=== PATIENT | male | born 1965 | race Caucasian/White ===

== ENCOUNTER 2019-09-03 22:54 | Emergency (ER) | payer MEDICARE, MEDICAID ==
[2019-09-03] MEDS ORDERED: NS 1,000 ML IV SCH (23:02)
[2019-09-03] MEDS ORDERED: HumuLIN R (REGULAR) INSULIN (NovoLIN R) **100U/ML** PER UNIT IV ONE (23:15)
[2019-09-03 23:27] LABS: BASO # 0.1 10^3/uL (0.0-0.2); BASO % 0.7 % (0.0-1.0); EOS # 0.1 10^3/uL (0.0-0.5); HEMATOCRIT 44.9 % (42.0-52.0); HEMOGLOBIN 14.4 g/dl (13.5-17.5); LYMPH # 2.2 10^3/uL (1.5-5.0); LYMPH % 30.7 % (24.0-44.0); MEAN CORPUSCULAR HEMOGLOBIN 28.3 pg (27.0-33.0); MEAN CORPUSCULAR HGB CONC 32.1 g/dl (32.0-36.5); MEAN CORPUSCULAR VOLUME 88.2 fl (80.0-96.0); MONO # 0.5 10^3/uL (0.0-0.8); MONO % 7.2 % (0.0-5.0); NEUTROPHILS # 4.3 10^3/uL (1.5-8.5); NEUTROPHILS % 60.1 % (36.0-66.0); PLATELET COUNT, AUTOMATED 203 10^3/uL (150-450); RED BLOOD COUNT 5.09 10^6/uL (4.30-6.10); VENOUS BASE EXCESS -0.3 (-2.0-2.0); VENOUS HCO3 26.5 MEQ/L (23.0-27.0); VENOUS PARTIAL PRESSURE CO2 51.8 mmHg (38.0-50.0); VENOUS PH 7.327 UNITS (7.330-7.430); VENOUS STANDARD HCO3 23.7 MEQ/L; VENOUS TOTAL CO2 28.1 MEQ/L (24.0-28.0); WHITE BLOOD COUNT 7.1 10^3/uL (4.0-10.0)
[2019-09-03 23:48] LABS: HEMOGLOBIN A1c 13.1 %
[2019-09-03 23:55] LABS: BLOOD UREA NITROGEN 12 MG/DL (7-18); CALCIUM LEVEL 8.8 MG/DL (8.5-10.1); CARBON DIOXIDE LEVEL 30 MEQ/L (21-32); CHLORIDE LEVEL 99 MEQ/L (98-107); CK-MB VALUE MASS 2.2 NG/ML (<3.6); CPK CREATINE PHOSPHOKINASE 73 U/L (39-308); CREATININE FOR GFR 1.18 MG/DL (0.70-1.30); ETHYL ALCOHOL (ETHANOL) 0.008 % (0.000-0.010); GLOMERULAR FILTRATION RATE > 60.0 (>56); GLUCOSE, FASTING 427 MG/DL (70-100); MB/CK RELATIVE INDEX 3.01 (< OR =4); NT-PRO BNP 28 PG/ML (<125); SODIUM LEVEL 138 MEQ/L (136-145); TROPONIN I < 0.02 NG/ML (< 0.10)
[2019-09-04] MEDS ORDERED: HUMA100I5 SC (00:01)
[2019-09-04] MEDS ORDERED: PAXI20TA29 PO (00:01)
[2019-09-04] MEDS ORDERED: VITA50005 PO (00:01)
[2019-09-04] MEDS ORDERED: METF-877 PO (00:01)
[2019-09-04] MEDS ORDERED: ELIQ5TAB PO (00:01)
[2019-09-04 00:37] LABS: INR 0.92; PROTHROMBIN TIME 12.1 SECONDS (11.8-14.0)
[2019-09-04 01:26] VITALS: BP 105/67
--- NOTE | 2019-09-04 06:56 | ECGEPIP ---
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
--- NOTE | 2019-09-04 08:00 | REP ---
Clinical: Acute chest pain . Comparison: None . Findings: The mediastinum and cardiac silhouette are stable and within normal limits for portable technique. The lung jacobsen are clear without acute consolidation, effusion, or pneumothorax. Skeletal structures are intact. Impression: No acute cardiopulmonary process appreciated. Electronically Signed by Hamilton Webster MD 09/04/2019 07:51 A
== END 2019-09-04 01:30 | disposition home or self-care (01) ==
LOC: M ED 22:54
DX: E11.65 Type 2 diabetes mellitus with hyperglycemia (principal); I10 Essential (primary) hypertension; Z79.899 Other long term (current) drug therapy; Z79.4 Long term (current) use of insulin; Z79.01 Long term (current) use of anticoagulants; F17.210 Nicotine dependence, cigarettes, uncomplicated
CPT/HCPCS: 36415; 71045; 80047; 80048; 82550; 82553; 82803; 83036; 83880; 84484; 85025; 85610; 93005; 93041; 96361; 96374; 99285; G0480

== ENCOUNTER 2023-11-01 23:12 | Emergency (ER) | payer OTHER, MEDICAID ==
[~2023-11-01] VITALS: Ht 190.5 cm; Wt 81.6 kg
[~2023-11-01 23:12] MED LIST: ELIQ5TAB PO; ERGO500029 PO; HUMA100I5 SC; METF-877 PO; PAXI20TA30 PO
[2023-11-02 04:27] VITALS: BP 159/73; TEMP 98.7; O2SAT 98
== END 2023-11-02 04:35 | disposition home or self-care (01) ==
LOC: EDBD 23:12 → M ED 23:12
DX: R22.41 Localized swelling, mass and lump, right lower limb (principal); E11.9 Type 2 diabetes mellitus without complications; G62.9 Polyneuropathy, unspecified; Z87.820 Personal history of traumatic brain injury; Z79.01 Long term (current) use of anticoagulants; Z79.4 Long term (current) use of insulin; Z79.899 Other long term (current) drug therapy

== ENCOUNTER 2024-01-26 13:29 | Observation (INO) | payer OTHER, MEDICAID ==
[~2024-01-26] VITALS: Ht 190.5 cm; Wt 82.8 kg
[2024-01-26 14:11] LABS: VENOUS BASE EXCESS -0.2 (-2.0-2.0); VENOUS HCO3 27.7 MMOL/L (23.0-27.0); VENOUS O2 SATURATION 72.6 % (60.0-80.0); VENOUS PARTIAL PRESSURE CO2 60.5 mmHg (38.0-50.0); VENOUS PARTIAL PRESSURE O2 40.4 mmHg (30.0-50.0); VENOUS PH 7.279 UNITS (7.330-7.430); VENOUS STANDARD HCO3 23.8 MMOL/L; VENOUS TOTAL CO2 29.6 MMOL/L (24.0-28.0)
[2024-01-26 14:18] LABS: BASO # 0.1 10^3/uL (0.0-0.2); BASO % 0.8 % (0.0-1.0); EOS # 0.1 10^3/uL (0.0-0.5); EOS % 2.2 % (0.0-3.0); HEMATOCRIT 36.7 % (42.0-52.0); LYMPH # 1.8 10^3/uL (1.5-5.0); LYMPH % 29.8 % (24.0-44.0); MEAN CORPUSCULAR HEMOGLOBIN 29.7 pg (27.0-33.0); MEAN CORPUSCULAR HGB CONC 32.7 g/dl (32.0-36.5); MEAN CORPUSCULAR VOLUME 90.8 fl (80.0-96.0); MONO # 0.5 10^3/uL (0.0-0.8); MONO % 8.9 % (2.0-8.0); NEUTROPHILS # 3.5 10^3/uL (1.5-8.5); PLATELET COUNT, AUTOMATED 187 10^3/uL (150-450); RED BLOOD COUNT 4.04 10^6/uL (4.30-6.10)
[2024-01-26 14:38] LABS: ETHYL ALCOHOL (ETHANOL) < 0.003 % (0.000-0.010)
[2024-01-26 14:40] LABS: CPK CREATINE PHOSPHOKINASE 74 U/L (46-171); SALICYLATE LEVEL < 3.0 MG/DL (<30)
[2024-01-26 14:51] LABS: OSMOLALITY SERUM 301 MOSM/KG (275-295)
[2024-01-26 14:57] LABS: ALBUMIN 2.9 G/DL (3.2-5.2); ALKALINE PHOSPHATASE 73 U/L (40-129); ALT/SGPT 32 U/L (7.0-40); AST/SGOT 23 U/L (<34); BILIRUBIN,DIRECT 0.2 MG/DL (<0.4); BILIRUBIN,TOTAL 0.5 MG/DL (0.3-1.2); BLOOD UREA NITROGEN 14 MG/DL (9-23); CALCIUM LEVEL 8.8 MG/DL (8.5-10.1); CARBON DIOXIDE LEVEL 31 MMOL/L (20-31); CHLORIDE LEVEL 102 MMOL/L (98-107); CK-MB VALUE MASS 1.2 NG/ML (<3.6); CREATININE FOR GFR 0.99 MG/DL (0.70-1.30); GLOMERULAR FILTRATION RATE > 60.0 (>56); GLUCOSE, FASTING 424 MG/DL (60-100); MB/CK RELATIVE INDEX 1.62 (< OR =4); POTASSIUM SERUM 4.2 MMOL/L (3.5-5.1); SODIUM LEVEL 135 MMOL/L (136-145); THYROID STIMULATING HORMONE 1.014 uIU/ML (0.55-4.78); TOTAL PROTEIN 5.8 G/DL (5.7-8.2)
[2024-01-26] MEDS: NS 1,000 ML IV ONE (15:16)
[2024-01-26 15:27] LABS: CK-MB VALUE MASS 1.2 NG/ML (<3.6)
[2024-01-26] MEDS ORDERED: ISOVUE-370 76% 100ML VIAL As Ordered ONE (15:27)
[2024-01-26 15:29] LABS: CPK CREATINE PHOSPHOKINASE 81 U/L (46-171); MB/CK RELATIVE INDEX 1.48 (< OR =4)
[2024-01-26 16:40] LABS: AMPHETAMINES LEVEL URINE NEGATIVE (NEGATIVE); BARBITURATES URINE NEGATIVE (NEGATIVE); BENZODIAZEPINES URINE NEGATIVE (NEGATIVE); CANNABINOIDS URINE NEGATIVE (NEGATIVE); COCAINE METABOLITE URINE NEGATIVE (NEGATIVE); METHADONE URINE NEGATIVE (NEGATIVE); OPIATES URINE NEGATIVE (NEGATIVE); PHENCYCLIDINE URINE NEGATIVE (NEGATIVE)
[2024-01-26] MEDS ORDERED: MIDO10TA3 PO (17:04)
[2024-01-26] MEDS ORDERED: B-CO1TAB14 PO (17:04)
[2024-01-26] MEDS ORDERED: FERR325T19 PO (17:04)
[2024-01-26] MEDS ORDERED: PIOG1TAB36 PO (17:04)
[2024-01-26] MEDS ORDERED: HYDR-3363 PO (17:04)
[2024-01-26] MEDS ORDERED: TOPI-21 PO (17:04)
[2024-01-26] MEDS ORDERED: LEVE500T5 PO (17:04)
[2024-01-26] MEDS ORDERED: ATOM10CA6 PO (17:04)
[2024-01-26] MEDS ORDERED: MELA3TAB29 PO (17:04)
[2024-01-26] MEDS ORDERED: ZOLO100T PO (17:04)
[2024-01-26] MEDS ORDERED: ASPI81TA26 PO (17:04)
[2024-01-26] MEDS ORDERED: GABA-1490 PO (17:04)
[2024-01-26] MEDS ORDERED: MECL-86 PO (17:04)
[2024-01-26] MEDS ORDERED: FLUD0.1T PO (17:04)
[2024-01-26] MEDS ORDERED: JANU100T PO (17:04)
[2024-01-26] MEDS ORDERED: ATOR40TA75 PO (17:05)
[2024-01-26] MEDS ORDERED: LANTINJ4 SC (17:06)
[2024-01-26] MEDS ORDERED: HOME MED LIST COMPLETE! XX SCH (17:10)
[2024-01-26] MEDS ORDERED: GLUCOSE 4 GM CHEW PO PRN (19:35)
[2024-01-26] MEDS ORDERED: GLUCAGON INJ 1MG VIAL SC PRN (19:35)
[2024-01-26] MEDS ORDERED: MIDODRINE 5 MG TAB PO PRN (19:35)
[2024-01-26] MEDS ORDERED: DEXTROSE 50% 50ML SYRINGE IV PRN (19:35)
[2024-01-26 20:27] LABS: HEMATOCRIT 39.5 % (42.0-52.0); MEAN CORPUSCULAR HEMOGLOBIN 29.5 pg (27.0-33.0); MEAN CORPUSCULAR HGB CONC 32.9 g/dl (32.0-36.5); MEAN CORPUSCULAR VOLUME 89.8 fl (80.0-96.0); PLATELET COUNT, AUTOMATED 193 10^3/uL (150-450); WHITE BLOOD COUNT 5.5 10^3/uL (4.0-10.0)
[2024-01-26 20:50] LABS: BLOOD UREA NITROGEN 11 MG/DL (9-23); CALCIUM LEVEL 8.9 MG/DL (8.5-10.1); CARBON DIOXIDE LEVEL 32 MMOL/L (20-31); CHLORIDE LEVEL 104 MMOL/L (98-107); CREATININE FOR GFR 0.84 MG/DL (0.70-1.30); GLOMERULAR FILTRATION RATE > 60.0 (>56); GLUCOSE, FASTING 268 MG/DL (60-100); POTASSIUM SERUM 4.2 MMOL/L (3.5-5.1); SODIUM LEVEL 141 MMOL/L (136-145)
[2024-01-26] MEDS: ASPIRIN 81MG ENTERIC TABLET PO SCH (21:36)
[2024-01-26] MEDS: INSULIN LISPRO (NovoLOG) PER UNIT SC SCH (21:36)
[2024-01-26] MEDS: TOPIRAMATE (TopAMAX) 25 MG TAB PO SCH (21:37)
[2024-01-26] MEDS: GABAPENTIN 300 MG CAP PO SCH (21:37)
[2024-01-26] MEDS: levETIRAcetam 250MG TABLET (KEPPRA) PO SCH (21:37)
[2024-01-26] MEDS: ATORVASTATIN 20 MG TAB PO SCH (21:37)
[2024-01-26 22:46] VITALS: BP 160/81; TEMP 97.1; O2SAT 96
[2024-01-27] VITALS (9 sets, daily range): BP systolic 100–150; BP diastolic 58–86; PULSE 74; TEMP 97.2–98.8; O2SAT 95–99
[2024-01-27] MEDS: PANTOPRAZOLE 40MG VIAL IV STA (01:51)
[2024-01-27 06:53] LABS: HEMATOCRIT 37.4 % (42.0-52.0); HEMOGLOBIN 12.3 g/dl (13.5-17.5); MEAN CORPUSCULAR HEMOGLOBIN 29.6 pg (27.0-33.0); MEAN CORPUSCULAR HGB CONC 32.9 g/dl (32.0-36.5); MEAN CORPUSCULAR VOLUME 90.1 fl (80.0-96.0); PLATELET COUNT, AUTOMATED 187 10^3/uL (150-450); RED BLOOD COUNT 4.15 10^6/uL (4.30-6.10); WHITE BLOOD COUNT 6.2 10^3/uL (4.0-10.0)
[2024-01-27 07:11] LABS: BLOOD UREA NITROGEN 12 MG/DL (9-23); CALCIUM LEVEL 8.9 MG/DL (8.5-10.1); CARBON DIOXIDE LEVEL 32 MMOL/L (20-31); CHLORIDE LEVEL 106 MMOL/L (98-107); CREATININE FOR GFR 0.95 MG/DL (0.70-1.30); GLOMERULAR FILTRATION RATE > 60.0 (>56); GLUCOSE, FASTING 222 MG/DL (60-100); POTASSIUM SERUM 3.8 MMOL/L (3.5-5.1); SODIUM LEVEL 140 MMOL/L (136-145)
[2024-01-27] MEDS: INSULIN LISPRO (NovoLOG) PER UNIT SC SCH (08:23)
[2024-01-27] MEDS: SERTRALINE 100 MG TAB PO SCH (08:23)
[2024-01-27] MEDS: FLUDROCORTISONE ACETATE 0.1 MG TAB PO SCH (08:23)
[2024-01-27] MEDS ORDERED: ACETAMINOPHEN 325 MG TAB As Ordered ONE (12:47)
[2024-01-27] MEDS: MECLIZINE 25 MG TABLET PO PRN (12:48)
[2024-01-27] MEDS: ACETAMINOPHEN 325 MG TAB PO PRN (12:49)
[2024-01-27] MEDS: SITagliptin 50 MG TAB (JANUVIA) PO SCH (15:31)
[2024-01-27] MEDS ORDERED: LEVEMIR (INSULIN DETEMIR) 1 UNITS/0.01ML SC SCH (21:00)
[2024-01-28 03:27] VITALS: BP 140/85; TEMP 97.8; O2SAT 98
[2024-01-28 05:55] LABS: BASO % 0.7 % (0.0-1.0); EOS # 0.2 10^3/uL (0.0-0.5); EOS % 3.3 % (0.0-3.0); HEMATOCRIT 36.5 % (42.0-52.0); HEMOGLOBIN 11.9 g/dl (13.5-17.5); LYMPH # 2.2 10^3/uL (1.5-5.0); LYMPH % 38.1 % (24.0-44.0); MEAN CORPUSCULAR HEMOGLOBIN 29.8 pg (27.0-33.0); MEAN CORPUSCULAR HGB CONC 32.6 g/dl (32.0-36.5); MEAN CORPUSCULAR VOLUME 91.3 fl (80.0-96.0); MONO # 0.5 10^3/uL (0.0-0.8); MONO % 8.1 % (2.0-8.0); NEUTROPHILS # 2.9 10^3/uL (1.5-8.5); NEUTROPHILS % 49.6 % (36.0-66.0); PLATELET COUNT, AUTOMATED 186 10^3/uL (150-450); WHITE BLOOD COUNT 5.8 10^3/uL (4.0-10.0)
[2024-01-28 06:16] LABS: BLOOD UREA NITROGEN 18 MG/DL (9-23); CALCIUM LEVEL 9.3 MG/DL (8.5-10.1); CARBON DIOXIDE LEVEL 28 MMOL/L (20-31); CHLORIDE LEVEL 108 MMOL/L (98-107); CREATININE FOR GFR 0.93 MG/DL (0.70-1.30); GLOMERULAR FILTRATION RATE > 60.0 (>56); GLUCOSE, FASTING 239 MG/DL (60-100); SODIUM LEVEL 142 MMOL/L (136-145)
[2024-01-28 07:52] VITALS: BP 110/58; TEMP 97.2; O2SAT 97
[2024-01-28] MEDS ORDERED: LEVEMIR (INSULIN DETEMIR) 1 UNITS/0.01ML SC SCH (09:00)
[2024-01-28] MEDS: LEVEMIR (INSULIN DETEMIR) 1 UNITS/0.01ML SC SCH (09:07)
[2024-01-28 11:30] VITALS: BP 121/69; TEMP 98.4; O2SAT 96
[2024-01-28] MEDS ORDERED: ACET32TAB PO (14:21)
[2024-01-28] MEDS ORDERED: JANU100T PO (14:21)
[2024-01-28] MEDS ORDERED: LANTINJ4 SC (14:21)
== END 2024-01-28 17:40 | disposition home health service (06) ==
LOC: EDBD 13:29 → M ED 13:29 → INTOOBSV 19:28 → M ED INP 19:28 → M PCU 22:55
PROVIDERS: ADMIT Student in an Organized Health Care Education/Training Program; ATTEND Student in an Organized Health Care Education/Training Program
DX: R41.82 Altered mental status, unspecified (principal); G40.909 Epilepsy, unspecified, not intractable, without status epilepticus; E11.65 Type 2 diabetes mellitus with hyperglycemia; R94.01 Abnormal electroencephalogram [EEG]; R51.9 Headache, unspecified; M79.89 Other specified soft tissue disorders; J98.11 Atelectasis; R91.1 Solitary pulmonary nodule; I77.810 Thoracic aortic ectasia; Z87.820 Personal history of traumatic brain injury; I95.1 Orthostatic hypotension; E11.42 Type 2 diabetes mellitus with diabetic polyneuropathy; G47.30 Sleep apnea, unspecified; R26.81 Unsteadiness on feet; R29.6 Repeated falls; J96.11 Chronic respiratory failure with hypoxia; J96.12 Chronic respiratory failure with hypercapnia; G93.89 Other specified disorders of brain; H93.11 Tinnitus, right ear; R42 Dizziness and giddiness; F90.9 Attention-deficit hyperactivity disorder, unspecified type; F41.9 Anxiety disorder, unspecified; E78.5 Hyperlipidemia, unspecified; D50.9 Iron deficiency anemia, unspecified; E53.8 Deficiency of other specified B group vitamins; Z98.84 Bariatric surgery status; Z79.899 Other long term (current) drug therapy; Z79.82 Long term (current) use of aspirin; Z79.4 Long term (current) use of insulin
CPT/HCPCS: 36415; 70450; 71045; 71275; 72125; 80047; 80048; 80076; 80143; 80177; 80307; 82077; 82140; 82550; 82553; 82803; 83605; 83930; 84146; 84443; 84484; 85025; 85027; 87040; 87077; 87154; 87186; 93005; 93041; 93306; 94760; 95819; 96374; 97116; 97161; 97530; 99285; G0378; J1815; J2470; Q9967

== ENCOUNTER 2024-02-12 14:12 | Inpatient (IN) | payer OTHER, MEDICAID ==
[~2024-02-12] VITALS: Ht 190.5 cm; Wt 89.5 kg
[~2024-02-12 14:12] MED LIST changes: +ACET32TAB PO; +ASPI81TA26 PO; +ATOM10CA6 PO; +ATOR40TA75 PO; +B-CO1TAB14 PO; +FERR325T19 PO; +FLUD0.1T PO; +GABA-1490 PO; +HYDR-3363 PO; +JANU100T PO; +LANTINJ4 SC; +LEVE500T5 PO; +MECL-86 PO; +MELA3TAB29 PO; +MIDO10TA3 PO; +PIOG1TAB36 PO; +TOPI-21 PO; +ZOLO100T PO
[2024-02-12 15:04] LABS: BASO # 0.1 10^3/uL (0.0-0.2); EOS # 0.2 10^3/uL (0.0-0.5); EOS % 2.4 % (0.0-3.0); HEMATOCRIT 39.6 % (42.0-52.0); HEMOGLOBIN 12.7 g/dl (13.5-17.5); LYMPH # 1.6 10^3/uL (1.5-5.0); LYMPH % 26.7 % (24.0-44.0); MEAN CORPUSCULAR HEMOGLOBIN 29.3 pg (27.0-33.0); MEAN CORPUSCULAR HGB CONC 32.1 g/dl (32.0-36.5); MEAN CORPUSCULAR VOLUME 91.5 fl (80.0-96.0); MONO # 0.5 10^3/uL (0.0-0.8); NEUTROPHILS # 3.8 10^3/uL (1.5-8.5); NEUTROPHILS % 61.7 % (36.0-66.0); PLATELET COUNT, AUTOMATED 261 10^3/uL (150-450); RED BLOOD COUNT 4.33 10^6/uL (4.30-6.10); WHITE BLOOD COUNT 6.1 10^3/uL (4.0-10.0)
[2024-02-12 15:33] LABS: ETHYL ALCOHOL (ETHANOL) 0.005 % (0.000-0.010)
[2024-02-12 15:40] LABS: BLOOD UREA NITROGEN 16 MG/DL (9-23); CALCIUM LEVEL 9.1 MG/DL (8.5-10.1); CARBON DIOXIDE LEVEL 31 MMOL/L (20-31); CHLORIDE LEVEL 100 MMOL/L (98-107); CREATININE FOR GFR 0.91 MG/DL (0.70-1.30); FREE T4 0.94 NG/DL (0.89-1.76); GLOMERULAR FILTRATION RATE > 60.0 (>56); GLUCOSE, FASTING 501 MG/DL (60-100); MAGNESIUM LEVEL 1.6 MG/DL (1.8-2.4); POTASSIUM SERUM 4.6 MMOL/L (3.5-5.1); SODIUM LEVEL 136 MMOL/L (136-145); THYROID STIMULATING HORMONE 1.788 uIU/ML (0.55-4.78)
[2024-02-12 15:56] LABS: AMPHETAMINES LEVEL URINE NEGATIVE (NEGATIVE); BARBITURATES URINE NEGATIVE (NEGATIVE); BENZODIAZEPINES URINE NEGATIVE (NEGATIVE); CANNABINOIDS URINE NEGATIVE (NEGATIVE); COCAINE METABOLITE URINE NEGATIVE (NEGATIVE); METHADONE URINE NEGATIVE (NEGATIVE); OPIATES URINE NEGATIVE (NEGATIVE); PHENCYCLIDINE URINE NEGATIVE (NEGATIVE)
[2024-02-12] MEDS: HumuLIN R (REGULAR) INSULIN (NovoLIN R) **100U/ML** PER UNIT IV ONE (17:05)
[2024-02-12] MEDS: MORPHINE 2 MG/ML 1ML VIAL IV ONE (17:05)
[2024-02-12] MEDS ORDERED: LANTINJ4 SC (18:32)
[2024-02-12] MEDS ORDERED: HOME MED LIST COMPLETE! XX SCH (18:35)
[2024-02-12] MEDS ORDERED: GLUCAGON INJ 1MG VIAL SC PRN (18:35)
[2024-02-12] MEDS: NS 1,000 ML IV SCH (18:35)
[2024-02-12] MEDS ORDERED: DEXTROSE 50% 50ML SYRINGE IV PRN (18:35)
[2024-02-12] MEDS ORDERED: GLUCOSE 4 GM CHEW PO PRN (18:35)
[2024-02-12 19:06] LABS: ACETONE/KETONE 0.13 MMOL/L (0.02-0.27)
[2024-02-12 19:09] LABS: FOLATE 19.3 NG/ML (>5.4); VITAMIN B12 LEVEL 1468 PG/ML (211-911)
[2024-02-12] MEDS ORDERED: MIDODRINE 5 MG TAB PO PRN (19:25)
[2024-02-12] MEDS ORDERED: MECLIZINE 25 MG TABLET PO PRN (19:25)
[2024-02-12 20:29] VITALS: BP 92/65; TEMP 97.8; O2SAT 97
[2024-02-12] MEDS: MAG SULF 1GM/100ML (MAG RUN) 1 GM in IV 1 EA IV SCH (20:59)
[2024-02-12] MEDS: GABAPENTIN 300 MG CAP PO SCH (21:00)
[2024-02-12] MEDS: NS 1,000 ML IV ONE (21:00)
[2024-02-12] MEDS: ATORVASTATIN 20 MG TAB PO SCH (21:00)
[2024-02-12] MEDS: RAMELTEON 8 MG TAB (ROZEREM) PO SCH (21:00)
[2024-02-12] MEDS: levETIRAcetam 250MG TABLET (KEPPRA) PO SCH (21:00)
[2024-02-12 23:27] VITALS: BP 162/83; TEMP 96.9; O2SAT 95
[2024-02-12] MEDS: INSULIN LISPRO (NovoLOG) PER UNIT SC SCH (23:43)
[2024-02-12] MEDS: TOPIRAMATE (TopAMAX) 25 MG TAB PO SCH (23:43)
[2024-02-13] VITALS (7 sets, daily range): BP systolic 102–135; BP diastolic 54–74; TEMP 97.2–98.5; O2SAT 93–99
[2024-02-13] MEDS: MORPHINE 2 MG/ML 1ML VIAL IV PRN (02:08)
[2024-02-13] MEDS ORDERED: NALOXONE INJ 0.4MG/1ML VIAL As Ordered ONE (03:59)
[2024-02-13 04:16] LABS: ABG BASE EXCESS -0.1 (-2.0-2.0); ABG O2 SATURATION 98.7 % (95.0-99.0); ABG PARTIAL PRESSURE CO2 48.4 mmHg (35.0-45.0); ABG STANDARD HCO3 24.4 MMOL/L. (22.0-26.0); ABG TOTAL CO2 27.5 MMOL/L (22.0-29.0); ABG pH (ARTERIAL) 7.348 UNITS (7.350-7.450)
[2024-02-13 04:50] LABS: BASO # 0.1 10^3/uL (0.0-0.2); BASO % 0.7 % (0.0-1.0); EOS # 0.2 10^3/uL (0.0-0.5); EOS % 2.3 % (0.0-3.0); HEMATOCRIT 35.3 % (42.0-52.0); HEMOGLOBIN 11.5 g/dl (13.5-17.5); LYMPH # 2.2 10^3/uL (1.5-5.0); LYMPH % 23.9 % (24.0-44.0); MEAN CORPUSCULAR HEMOGLOBIN 29.6 pg (27.0-33.0); MEAN CORPUSCULAR HGB CONC 32.6 g/dl (32.0-36.5); MEAN CORPUSCULAR VOLUME 90.7 fl (80.0-96.0); MONO # 0.6 10^3/uL (0.0-0.8); MONO % 6.1 % (2.0-8.0); NEUTROPHILS # 6.3 10^3/uL (1.5-8.5); NEUTROPHILS % 66.6 % (36.0-66.0); PLATELET COUNT, AUTOMATED 238 10^3/uL (150-450); RED BLOOD COUNT 3.89 10^6/uL (4.30-6.10); WHITE BLOOD COUNT 9.4 10^3/uL (4.0-10.0)
[2024-02-13] MEDS: NALOXONE INJ 0.4MG/1ML VIAL IV STA ×2 (04:51→04:52)
[2024-02-13 05:11] LABS: ALBUMIN 2.8 G/DL (3.2-5.2); ALKALINE PHOSPHATASE 64 U/L (40-129); ALT/SGPT 32 U/L (7.0-40); AST/SGOT 27 U/L (<34); BILIRUBIN,TOTAL 0.5 MG/DL (0.3-1.2); BLOOD UREA NITROGEN 17 MG/DL (9-23); CALCIUM LEVEL 9.2 MG/DL (8.5-10.1); CARBON DIOXIDE LEVEL 29 MMOL/L (20-31); CHLORIDE LEVEL 107 MMOL/L (98-107); CREATININE FOR GFR 0.93 MG/DL (0.70-1.30); GLOMERULAR FILTRATION RATE > 60.0 (>56); GLUCOSE, FASTING 170 MG/DL (60-100); POTASSIUM SERUM 3.7 MMOL/L (3.5-5.1); SODIUM LEVEL 142 MMOL/L (136-145); TOTAL PROTEIN 5.7 G/DL (5.7-8.2)
[2024-02-13 05:12] LABS: ACETONE/KETONE 0.33 MMOL/L (0.02-0.27)
[2024-02-13 05:15] LABS: ALBUMIN 2.9 G/DL (3.2-5.2); ALKALINE PHOSPHATASE 64 U/L (40-129); ALT/SGPT 33 U/L (7.0-40); AST/SGOT 27 U/L (<34); BILIRUBIN,TOTAL 0.5 MG/DL (0.3-1.2); BLOOD UREA NITROGEN 16 MG/DL (9-23); CALCIUM LEVEL 9.3 MG/DL (8.5-10.1); CARBON DIOXIDE LEVEL 28 MMOL/L (20-31); CHLORIDE LEVEL 106 MMOL/L (98-107); CREATININE FOR GFR 0.94 MG/DL (0.70-1.30); GLOMERULAR FILTRATION RATE > 60.0 (>56); GLUCOSE, FASTING 169 MG/DL (60-100); MAGNESIUM LEVEL 1.9 MG/DL (1.8-2.4); POTASSIUM SERUM 3.6 MMOL/L (3.5-5.1); SODIUM LEVEL 141 MMOL/L (136-145); TOTAL PROTEIN 5.8 G/DL (5.7-8.2)
[2024-02-13] MEDS ORDERED: ATOMOXETINE HCL 40 MG CAP (STRATTERA) PO SCH (09:00)
[2024-02-13 09:18] LABS: BLOOD UREA NITROGEN 17 MG/DL (9-23); CALCIUM LEVEL 9.2 MG/DL (8.5-10.1); CARBON DIOXIDE LEVEL 29 MMOL/L (20-31); CHLORIDE LEVEL 106 MMOL/L (98-107); CREATININE FOR GFR 0.88 MG/DL (0.70-1.30); GLOMERULAR FILTRATION RATE > 60.0 (>56); GLUCOSE, FASTING 217 MG/DL (60-100); POTASSIUM SERUM 4.2 MMOL/L (3.5-5.1); SODIUM LEVEL 141 MMOL/L (136-145)
[2024-02-13] MEDS: SERTRALINE 100 MG TAB PO SCH (10:39)
[2024-02-13] MEDS: ENOXAPARIN 40MG/0.4ML SYRINGE (J1650 PER 10MG) SC SCH (10:39)
[2024-02-13] MEDS: VITAMIN B COMPLEX/VIT C CAP PO SCH (10:39)
[2024-02-13] MEDS: FLUDROCORTISONE ACETATE 0.1 MG TAB PO SCH (10:40)
[2024-02-13] MEDS: FERROUS SULFATE 325MG TAB PO SCH (10:40)
[2024-02-13 10:51] LABS: CHOLESTEROL LEVEL 111 MG/DL (<200); CHOLESTEROL RISK RATIO 2.28 (<5); HDL CHOLESTEROL 48.6 MG/DL (>40); LDL CHOLESTEROL 45.8 MG/DL (<100); NON-HDL-C 62.4 MG/DL; TRIGLYCERIDES LEVEL 83 MG/DL (<150)
[2024-02-13 10:58] LABS: HEMOGLOBIN A1c 13.8 % (4.0-6.0)
[2024-02-13] MEDS: INSULIN LISPRO (NovoLOG) PER UNIT SC SCH ×2 (18:19→21:00)
[2024-02-13] MEDS: LORazepam 2 MG/ML 1ML VIAL IV STA (20:22)
[2024-02-13] MEDS: CAPSAICIN 0.025% CR 60 GM TOP PRN (21:59)
[2024-02-14] VITALS (8 sets, daily range): BP systolic 96–162; BP diastolic 54–82; TEMP 97.4–98.7; O2SAT 94–98
[2024-02-14] MEDS: ACETAMINOPHEN 325 MG TAB PO PRN (00:51)
[2024-02-14 07:33] LABS: HEMATOCRIT 32.9 % (42.0-52.0); HEMOGLOBIN 10.8 g/dl (13.5-17.5); MEAN CORPUSCULAR HEMOGLOBIN 30.2 pg (27.0-33.0); MEAN CORPUSCULAR HGB CONC 32.8 g/dl (32.0-36.5); MEAN CORPUSCULAR VOLUME 91.9 fl (80.0-96.0); PLATELET COUNT, AUTOMATED 226 10^3/uL (150-450); RED BLOOD COUNT 3.58 10^6/uL (4.30-6.10); WHITE BLOOD COUNT 6.9 10^3/uL (4.0-10.0)
[2024-02-14 07:57] LABS: BLOOD UREA NITROGEN 16 MG/DL (9-23); CALCIUM LEVEL 8.6 MG/DL (8.5-10.1); CARBON DIOXIDE LEVEL 27 MMOL/L (20-31); CHLORIDE LEVEL 110 MMOL/L (98-107); CREATININE FOR GFR 0.71 MG/DL (0.70-1.30); GLOMERULAR FILTRATION RATE > 60.0 (>56); GLUCOSE, FASTING 251 MG/DL (60-100); POTASSIUM SERUM 4.1 MMOL/L (3.5-5.1); SODIUM LEVEL 142 MMOL/L (136-145)
[2024-02-14] MEDS: FLUBLOK(EGGFREE) TRIVAL(24-25) VACCINE PF 0.5ML SYRINGE 18YRS & OLDER IM.IMMUN ONE (08:02)
[2024-02-14 12:24] LABS: APPEARANCE, URINE HAZY (CLEAR); BACTERIA, URINE AUTO NEGATIVE (NEGATIVE); BILIRUBIN, URINE AUTO NEGATIVE (NEGATIVE); BLOOD, URINE BLOOD NEGATIVE (NEGATIVE); COLOR, URINE YELLOW (YELLOW); GLUCOSE, URINE (UA) AUTO 3+ mg/dL (NEGATIVE); KETONE, URINE AUTO NEGATIVE (NEGATIVE); LEUKOCYTE ESTERASE, URINE AUTO NEGATIVE (NEGATIVE); NITRITE, URINE AUTO NEGATIVE (NEGATIVE); PROTEIN, URINE AUTO NEGATIVE (NEGATIVE); RBC, URINE AUTO 0 /HPF (0-3); SPECIFIC GRAVITY URINE AUTO 1.027 (1.002-1.035); SQUAMOUS EPITHELIAL CELL UR AU 0 /HPF (0-6); UROBILINOGEN, URINE AUTO 0.2 mg/dL (0.0-2.0); WBC, URINE AUTO 0 /HPF (0-3)
[2024-02-14] MEDS: NS 500 ML IV SCH (12:26)
[2024-02-14] MEDS ORDERED: MIDODRINE 2.5 MG TAB PO SCH (16:00)
[2024-02-14] MEDS: MIDODRINE 5 MG TAB PO SCH (16:00)
[2024-02-14] MEDS: MECLIZINE 25 MG TABLET PO PRN (16:57)
[2024-02-14] MEDS: INSULIN LISPRO (NovoLOG) PER UNIT SC STA (16:57)
[2024-02-15 03:26] VITALS: BP 156/88; TEMP 98.3; O2SAT 96
[2024-02-15 07:16] LABS: HEMATOCRIT 33.2 % (42.0-52.0); HEMOGLOBIN 10.8 g/dl (13.5-17.5); MEAN CORPUSCULAR HEMOGLOBIN 29.6 pg (27.0-33.0); MEAN CORPUSCULAR HGB CONC 32.5 g/dl (32.0-36.5); PLATELET COUNT, AUTOMATED 237 10^3/uL (150-450); RED BLOOD COUNT 3.65 10^6/uL (4.30-6.10)
[2024-02-15 07:37] VITALS: BP 157/79; TEMP 98.4; O2SAT 96
[2024-02-15] MEDS: LEVEMIR (INSULIN DETEMIR) 1 UNITS/0.01ML SC SCH (08:20)
[2024-02-15 09:45] VITALS: BP_SYST 117; BP_SYST 128; BP_SYST 169; BP_DIAS 64; BP_DIAS 65; BP_DIAS 83
[2024-02-15] MEDS: INSULIN LISPRO (NovoLOG) PER UNIT SC SCH (11:57)
[2024-02-15 12:00] VITALS: BP 150/80; TEMP 97; O2SAT 97
[2024-02-15 15:38] VITALS: BP 141/81; TEMP 98.2; O2SAT 96
[2024-02-15 19:51] VITALS: BP 115/55; TEMP 98.5; O2SAT 95
[2024-02-16 03:20] VITALS: BP 152/88; TEMP 97.3; O2SAT 96
[2024-02-16 06:23] LABS: BLOOD UREA NITROGEN 11 MG/DL (9-23); CALCIUM LEVEL 8.5 MG/DL (8.3-10.6); CARBON DIOXIDE LEVEL 29 MMOL/L (20-31); CHLORIDE LEVEL 108 MMOL/L (98-107); GLOMERULAR FILTRATION RATE > 60.0 (>49); GLUCOSE, FASTING 259 MG/DL (74-106); MAGNESIUM LEVEL 1.3 MG/DL (1.8-2.4); POTASSIUM SERUM 3.6 MMOL/L (3.5-5.1); SODIUM LEVEL 142 MMOL/L (136-145)
[2024-02-16 07:27] VITALS: BP 146/77; TEMP 98.1; O2SAT 98
[2024-02-16] MEDS: INSULIN LISPRO (NovoLOG) PER UNIT SC SCH (08:32)
[2024-02-16] MEDS: MAG SULF 1GM/100ML (MAG RUN) 1 GM in IV 1 EA IV SCH (08:34)
[2024-02-16] MEDS: UNRESOLVED PATIENT OWN MED ORDER XX SCH (09:00)
[2024-02-16 11:51] VITALS: BP 143/86; TEMP 97.2; O2SAT 96
[2024-02-16 12:30] VITALS: BP_SYST 120; BP_SYST 141; BP_DIAS 74; BP_DIAS 75; BP_DIAS 87
[2024-02-16 16:02] VITALS: BP 128/71; TEMP 97.2; O2SAT 97
[2024-02-16] MEDS ORDERED: INSULIN LISPRO (NovoLOG) PER UNIT SC SCH (17:30)
[2024-02-16] MEDS: LEVEMIR (INSULIN DETEMIR) 1 UNITS/0.01ML SC SCH (20:11)
[2024-02-16 20:20] VITALS: BP 156/79; TEMP 98.2; O2SAT 97
[2024-02-16] MEDS ORDERED: ATOMOXETINE 10 MG PO SCH (21:00)
[2024-02-17 03:46] VITALS: BP 178/96; TEMP 98.3; O2SAT 96
[2024-02-17] MEDS: IBUPROFEN 400MG TAB PO ONE (04:20)
[2024-02-17] MEDS ORDERED: MIDODRINE 5 MG TAB PO PRN (05:55)
[2024-02-17] MEDS: INSULIN LISPRO (NovoLOG) PER UNIT SC SCH ×2 (07:30→07:55)
[2024-02-17 08:05] VITALS: BP 139/78; TEMP 98.2; O2SAT 96
[2024-02-17 08:47] LABS: BLOOD UREA NITROGEN 11 MG/DL (9-23); CALCIUM LEVEL 8.7 MG/DL (8.3-10.6); CARBON DIOXIDE LEVEL 29 MMOL/L (20-31); CHLORIDE LEVEL 108 MMOL/L (98-107); CREATININE FOR GFR 0.75 MG/DL (0.70-1.30); GLOMERULAR FILTRATION RATE > 60.0 (>49); GLUCOSE, FASTING 223 MG/DL (74-106); MAGNESIUM LEVEL 1.5 MG/DL (1.8-2.4); POTASSIUM SERUM 3.7 MMOL/L (3.5-5.1); SODIUM LEVEL 144 MMOL/L (136-145)
[2024-02-17] MEDS ORDERED: MECL-86 PO (13:42)
[2024-02-17] MEDS ORDERED: NOVOINJ3 SC (13:42)
[2024-02-17] MEDS ORDERED: LANTINJ4 SC (13:42)
[2024-02-17] MEDS ORDERED: DEXT4TAB83 PO (13:42)
[2024-02-17] MEDS: MAGNESIUM OXIDE 400MG TAB (MAG-OX) PO SCH (17:40)
[2024-02-17 19:58] LABS: LEVETIRACETAM (KEPPRA) 8.2 mcg/mL (6.0-46.0)
[2024-02-18 18:23] LABS: TOPIRAMATE LEVEL 2.6 mcg/mL (see note)
== END 2024-02-17 17:41 | disposition home or self-care (01) | DRG 312 ==
LOC: EDBD 14:12 → M ED 14:12 → M ED INP 18:31 → M PCU 20:27
PROVIDERS: ADMIT Student in an Organized Health Care Education/Training Program; ATTEND Student in an Organized Health Care Education/Training Program
DX: I95.1 Orthostatic hypotension (principal); G93.41 Metabolic encephalopathy; E11.65 Type 2 diabetes mellitus with hyperglycemia; E11.42 Type 2 diabetes mellitus with diabetic polyneuropathy; G47.30 Sleep apnea, unspecified; R29.6 Repeated falls; D50.9 Iron deficiency anemia, unspecified; E78.5 Hyperlipidemia, unspecified; G40.909 Epilepsy, unspecified, not intractable, without status epilepticus; F41.9 Anxiety disorder, unspecified; E86.0 Dehydration; R41.0 Disorientation, unspecified; Z79.4 Long term (current) use of insulin; Z87.820 Personal history of traumatic brain injury; Z79.82 Long term (current) use of aspirin; Z98.84 Bariatric surgery status; Z91.148 Patient's other noncompliance with medication regimen for other reason; Z79.899 Other long term (current) drug therapy

== ENCOUNTER 2024-02-26 13:02 | Inpatient (IN) | payer OTHER, MEDICAID ==
[2024-02-26] VITALS (31 sets, daily range): BP systolic 69–139; BP diastolic 50–74; TEMP 99.6–100.8; O2SAT 88–99
[~2024-02-26] VITALS: Ht 182.9 cm; Wt 75.6 kg
[~2024-02-26 13:02] MED LIST changes: +DEXT4TAB83 PO; +NOVOINJ3 SC
[2024-02-26] MEDS: ETOMIDATE INJ 20MG/10ML VIAL IV ONE (13:12)
[2024-02-26] MEDS: ROCURONIUM BROMIDE 50MG/5ML VIAL IV ONE ×3 (13:12→19:01)
[2024-02-26] MEDS: MIDAZOLAM 100MG/100ML-0.9%NACL 100 MG in IV 1 EA IV SCH ×2 (13:29→19:00)
[2024-02-26] MEDS: NS (Normal Saline) 0.9% 1,000 ML IV ONE ×2 (13:29→16:55)
[2024-02-26 13:43] LABS: BASO # 0.1 10^3/uL (0.0-0.2); BASO % 0.4 % (0.0-1.0); EOS # 0.1 10^3/uL (0.0-0.5); EOS % 0.2 % (0.0-3.0); HEMATOCRIT 41.1 % (42.0-52.0); HEMOGLOBIN 12.7 g/dl (13.5-17.5); LYMPH # 1.8 10^3/uL (1.5-5.0); LYMPH % 8.6 % (24.0-44.0); MEAN CORPUSCULAR HEMOGLOBIN 30.4 pg (27.0-33.0); MEAN CORPUSCULAR HGB CONC 30.9 g/dl (32.0-36.5); MEAN CORPUSCULAR VOLUME 98.3 fl (80.0-96.0); MONO % 5.1 % (2.0-8.0); NEUTROPHILS # 17.4 10^3/uL (1.5-8.5); PLATELET COUNT, AUTOMATED 463 10^3/uL (150-450); RED BLOOD COUNT 4.18 10^6/uL (4.30-6.10); WHITE BLOOD COUNT 20.5 10^3/uL (4.0-10.0)
[2024-02-26 13:51] LABS: ABG BASE EXCESS -6.9 (-2.0-2.0); ABG HCO3 23.3 MMOL/L (22.0-26.0); ABG O2 SATURATION 93.9 % (95.0-99.0); ABG PARTIAL PRESSURE O2 86.7 mmHg (75.0-100.0); ABG STANDARD HCO3 18.8 MMOL/L. (22.0-26.0); ABG TOTAL CO2 25.5 MMOL/L (23.0-31.0)
[2024-02-26 13:52] LABS: ABG PARTIAL PRESSURE CO2 71.1 mmHg (35.0-45.0); ABG pH (ARTERIAL) 7.133 UNITS (7.350-7.450)
[2024-02-26 14:08] LABS: CK-MB VALUE MASS 1.8 NG/ML (<3.6); ETHYL ALCOHOL (ETHANOL) 0.008 % (0.000-0.010)
[2024-02-26 14:10] LABS: SALICYLATE LEVEL < 3.0 MG/DL (<30)
[2024-02-26 14:11] LABS: ALBUMIN 3.1 G/DL (3.2-5.2); ALKALINE PHOSPHATASE 90 U/L (40-129); ALT/SGPT 31 U/L (7.0-40); AST/SGOT 20 U/L (<34); BILIRUBIN,DIRECT 0.2 MG/DL (<0.4); BILIRUBIN,TOTAL 0.4 MG/DL (0.3-1.2); BLOOD UREA NITROGEN 16 MG/DL (9-23); CALCIUM LEVEL 9.3 MG/DL (8.3-10.6); CARBON DIOXIDE LEVEL 30 MMOL/L (20-31); CHLORIDE LEVEL 109 MMOL/L (98-107); CPK CREATINE PHOSPHOKINASE 115 U/L (46-171); CREATININE FOR GFR 0.91 MG/DL (0.70-1.30); GLOMERULAR FILTRATION RATE > 60.0 (>49); GLUCOSE, FASTING 135 MG/DL (74-106); MB/CK RELATIVE INDEX 1.56 (< OR =4); POTASSIUM SERUM 3.5 MMOL/L (3.5-5.1); SODIUM LEVEL 146 MMOL/L (136-145); THYROID STIMULATING HORMONE 2.791 uIU/ML (0.55-4.78); TOTAL PROTEIN 6.8 G/DL (5.7-8.2)
[2024-02-26] MEDS: levETIRAcetam INJection 1,000 MG in D5W 100 ML IV ONE (14:17)
[2024-02-26 14:21] LABS: KETONE, URINE AUTO RFX NEGATIVE (NEGATIVE); LEUKOCYTE ESTERASE UR AUTO RFX NEGATIVE (NEGATIVE); MUCUS, URINE RFX SMALL (NEGATIVE); NITRITE, URINE AUTO RFX NEGATIVE (NEGATIVE); RBC, URINE AUTO RFX 1 /HPF (0-3); SQUAM EPITHELIAL CELL UR AURFX 0 /HPF (0-6)
[2024-02-26 14:30] LABS: AMPHETAMINES LEVEL URINE NEGATIVE (NEGATIVE); BARBITURATES URINE NEGATIVE (NEGATIVE); BENZODIAZEPINES URINE NEGATIVE (NEGATIVE); COCAINE METABOLITE URINE NEGATIVE (NEGATIVE); METHADONE URINE NEGATIVE (NEGATIVE)
[2024-02-26 14:31] LABS: CANNABINOIDS URINE NEGATIVE (NEGATIVE); OPIATES URINE NEGATIVE (NEGATIVE); PHENCYCLIDINE URINE NEGATIVE (NEGATIVE)
[2024-02-26] MEDS ORDERED: ISOVUE-370 76% 100ML VIAL As Ordered ONE (14:31)
[2024-02-26 14:33] LABS: PROCALCITONIN 0.19 ng/ml
[2024-02-26] MEDS: PIPERACILLIN/TAZOBACTAM SOD 3.375 GM in DEXTROSE 5% (D5W) ADV/MINI-BAG 50 ML IV ONE (14:33)
[2024-02-26 15:13] LABS: ABG BASE EXCESS -3.9 (-2.0-2.0); ABG HCO3 24.3 MMOL/L (22.0-26.0); ABG O2 SATURATION 90.7 % (95.0-99.0); ABG PARTIAL PRESSURE CO2 59.2 mmHg (35.0-45.0); ABG PARTIAL PRESSURE O2 63.9 mmHg (75.0-100.0); ABG STANDARD HCO3 21.1 MMOL/L. (22.0-26.0); ABG TOTAL CO2 26.2 MMOL/L (23.0-31.0)
[2024-02-26 15:16] LABS: ABG pH (ARTERIAL) 7.232 UNITS (7.350-7.450)
[2024-02-26] MEDS: NS 500 ML IV ONE (15:23)
[2024-02-26] MEDS: NOREPINEPHRINE 4MG IN D5 250ML 4 MG in IV 1 EA IV SCH ×2 (15:25→20:03)
[2024-02-26] MEDS: MIDAZOLAM INJ 2MG/2ML VIAL IV PRN (15:54)
[2024-02-26] MEDS ORDERED: LOPE1CAP5 PO (16:07)
[2024-02-26] MEDS ORDERED: MECL-86 PO (16:14)
[2024-02-26] MEDS ORDERED: ACET-907 PO (16:14)
[2024-02-26] MEDS ORDERED: PIOG1TAB36 PO (16:18)
[2024-02-26] MEDS ORDERED: METH-1164 PO (16:18)
[2024-02-26] MEDS ORDERED: D31000TA PO (16:19)
[2024-02-26] MEDS ORDERED: HOME MED LIST COMPLETE! XX SCH (16:25)
[2024-02-26] MEDS ORDERED: HYDROCORTISONE 100MG/2ML VIAL As Ordered ONE (16:38)
[2024-02-26] MEDS: HYDROCORTISONE 100MG/2ML VIAL IV ONE (16:42)
[2024-02-26] MEDS ORDERED: LR 1,000 ML IV ONE (16:50)
[2024-02-26] MEDS: VASOPRESSIN IN 0.9 % NACL 20 UNIT in IV 1 EA IV SCH ×2 (16:54→19:00)
[2024-02-26] MEDS ORDERED: PROPOFOL 1,000 MG/100 ML VIAL As Ordered ONE (17:54)
[2024-02-26 18:27] LABS: MB/CK RELATIVE INDEX 1.07 (< OR =4)
[2024-02-26] MEDS ORDERED: methylPREDNISolone 500 MG, VIAL MATE ADAPTER 1 EACH in NS 100 ML IV SCH (18:35)
[2024-02-26] MEDS ORDERED: FENTANYL DRIP LOCK BOX KEY 1 EACH XX PRN (18:35)
[2024-02-26] MEDS: propofoL 1,000 MG in IV 1 EA IV SCH (18:40)
[2024-02-26] MEDS: fentaNYL CITRATE/NaCl 1,000 MCG in IV 1 EA IV SCH (18:55)
[2024-02-26] MEDS ORDERED: GLUCAGON INJ 1MG VIAL SC PRN (19:30)
[2024-02-26] MEDS ORDERED: ROCURONIUM BROMIDE 50MG/5ML VIAL IV PRN (19:30)
[2024-02-26] MEDS: PANTOPRAZOLE 40MG VIAL IV SCH (20:07)
[2024-02-26] MEDS: methylPREDNISolone 1,000 MG, VIAL MATE ADAPTER 1 EACH in NS 100 ML IV SCH (20:10)
[2024-02-26] MEDS ORDERED: VANCOMYCIN/WATER FOR INJ 1,000 MG in IV 1 EA IV SCH (20:45)
[2024-02-26] MEDS: PIPERACILLIN/TAZOBACTAM SOD 4.5 GM in DEXTROSE 5% (D5W) ADV/MINI-BAG 50 ML IV SCH (21:09)
[2024-02-26] MEDS: HEPARIN SOD (PORCINE) 5000UNITS/ML 1ML VIAL/SYRINGE SC SCH (21:09)
[2024-02-26] MEDS: VANCOMYCIN 1,750 MG/350 ML IV BAG *LOAD IV ONE (22:19)
[2024-02-27] VITALS (80 sets, daily range): BP systolic 79–141; BP diastolic 49–77; TEMP 98.3–102.2; O2SAT 91–100
[2024-02-27] MEDS: INSULIN LISPRO (NovoLOG) PER UNIT SC SCH
[2024-02-27] MEDS: ACETAMINOPHEN 650MG SUPP PR ONE (00:45)
[2024-02-27 04:54] LABS: BASO % 0.2 % (0.0-1.0); HEMATOCRIT 41.3 % (42.0-52.0); LYMPH # 0.4 10^3/uL (1.5-5.0); LYMPH % 4.5 % (24.0-44.0); MEAN CORPUSCULAR HGB CONC 31.5 g/dl (32.0-36.5); MEAN CORPUSCULAR VOLUME 95.2 fl (80.0-96.0); MONO # 0.5 10^3/uL (0.0-0.8); MONO % 5.1 % (2.0-8.0); NEUTROPHILS # 8.1 10^3/uL (1.5-8.5); NEUTROPHILS % 89.9 % (36.0-66.0); PLATELET COUNT, AUTOMATED 390 10^3/uL (150-450); RED BLOOD COUNT 4.34 10^6/uL (4.30-6.10)
[2024-02-27 05:07] LABS: ALBUMIN 2.4 G/DL (3.2-5.2); ALKALINE PHOSPHATASE 56 U/L (40-129); ALT/SGPT 23 U/L (7.0-40); AST/SGOT 15 U/L (<34); BILIRUBIN,TOTAL 0.8 MG/DL (0.3-1.2); BLOOD UREA NITROGEN 22 MG/DL (9-23); CALCIUM LEVEL 8.6 MG/DL (8.3-10.6); CARBON DIOXIDE LEVEL 22 MMOL/L (20-31); CHLORIDE LEVEL 108 MMOL/L (98-107); CREATININE FOR GFR 1.15 MG/DL (0.70-1.30); GLOMERULAR FILTRATION RATE > 60.0 (>49); GLUCOSE, FASTING 193 MG/DL (74-106); MAGNESIUM LEVEL 1.4 MG/DL (1.8-2.4); PHOSPHORUS LEVEL 5.2 MG/DL (2.4-5.1); POTASSIUM SERUM 4.8 MMOL/L (3.5-5.1); SODIUM LEVEL 140 MMOL/L (136-145); TOTAL PROTEIN 5.8 G/DL (5.7-8.2)
[2024-02-27] MEDS ORDERED: ACETAMINOPHEN 650MG SUPP PR ONE (05:15)
[2024-02-27] MEDS: MAG SULF 1GM/100ML (MAG RUN) 1 GM in IV 1 EA IV SCH (05:25)
[2024-02-27 05:41] LABS: ABG BASE EXCESS -5.9 (-2.0-2.0); ABG HCO3 20.3 MMOL/L (22.0-26.0); ABG O2 SATURATION 98.1 % (95.0-99.0); ABG PARTIAL PRESSURE CO2 42.3 mmHg (35.0-45.0); ABG PARTIAL PRESSURE O2 108.8 mmHg (75.0-100.0); ABG STANDARD HCO3 19.7 MMOL/L. (22.0-26.0); ABG TOTAL CO2 21.6 MMOL/L (23.0-31.0); ABG pH (ARTERIAL) 7.298 UNITS (7.350-7.450)
[2024-02-27] MEDS: VANCOMYCIN 1,250 MG/250 ML IV BAG IV SCH (06:35)
[2024-02-27] MEDS: ATOMOXETINE HCL 10MG CAPSULE (STRATTERA) PO SCH (09:00)
[2024-02-27] MEDS: SERTRALINE 100 MG TAB PO SCH (11:34)
[2024-02-27] MEDS: levETIRAcetam INJection 500 MG in DEXTROSE 5% (D5W) MINI-BAG PLU 100 ML IV SCH (11:35)
[2024-02-27] MEDS: LR 1,000 ML IV ONE (18:17)
[2024-02-27] MEDS: VANCOMYCIN 1,000MG/200 ML IV BAG IV SCH (18:21)
[2024-02-27] MEDS: D5W/LR 1,000 ML IV SCH (19:06)
[2024-02-27] MEDS: MIDODRINE 5 MG TAB PO SCH (19:24)
[2024-02-28] VITALS (24 sets, daily range): BP systolic 104–168; BP diastolic 55–93; TEMP 97.6–98.8; O2SAT 89–98
[2024-02-28 04:44] LABS: HEMATOCRIT 32.9 % (42.0-52.0); HEMOGLOBIN 10.4 g/dl (13.5-17.5); MEAN CORPUSCULAR HEMOGLOBIN 29.9 pg (27.0-33.0); MEAN CORPUSCULAR HGB CONC 31.6 g/dl (32.0-36.5); MEAN CORPUSCULAR VOLUME 94.5 fl (80.0-96.0); PLATELET COUNT, AUTOMATED 250 10^3/uL (150-450); RED BLOOD COUNT 3.48 10^6/uL (4.30-6.10); WHITE BLOOD COUNT 17.9 10^3/uL (4.0-10.0)
[2024-02-28 05:00] LABS: ALKALINE PHOSPHATASE 40 U/L (40-129); ALT/SGPT 19 U/L (7.0-40); AST/SGOT 15 U/L (<34); BILIRUBIN,TOTAL 0.6 MG/DL (0.3-1.2); BLOOD UREA NITROGEN 29 MG/DL (9-23); CALCIUM LEVEL 8.6 MG/DL (8.3-10.6); CARBON DIOXIDE LEVEL 26 MMOL/L (20-31); CHLORIDE LEVEL 108 MMOL/L (98-107); CREATININE FOR GFR 1.06 MG/DL (0.70-1.30); GLOMERULAR FILTRATION RATE > 60.0 (>49); GLUCOSE, FASTING 229 MG/DL (74-106); MAGNESIUM LEVEL 1.9 MG/DL (1.8-2.4); PHOSPHORUS LEVEL 3.3 MG/DL (2.4-5.1); POTASSIUM SERUM 4.3 MMOL/L (3.5-5.1); SODIUM LEVEL 140 MMOL/L (136-145); TOTAL PROTEIN 5.2 G/DL (5.7-8.2)
[2024-02-28] MEDS: VANCOMYCIN 1,250 MG/250 ML IV BAG IV ONE (07:47)
[2024-02-28] MEDS: FUROSEMIDE 20MG/2ML VIAL IV ONE (09:53)
[2024-02-28 09:59] LABS: ANISOCYTOSIS 1+; LYMPHOCYTES 8 % (16-44); MONOCYTES 5 % (0-5); NEUTROPHILS 70 % (28-66); POIKILOCYTOSIS 1+; POLYCHROMASIA 1+
[2024-02-28 12:23] LABS: PLATELET ESTIMATE NORMAL (NORMAL)
[2024-02-28] MEDS: VANCOMYCIN 1,250 MG/250 ML IV BAG IV SCH (18:22)
[2024-02-28] MEDS: D5W 1,000 ML IV SCH (18:45)
[2024-02-28] MEDS: LEVEMIR (INSULIN DETEMIR) 1 UNITS/0.01ML SC SCH (20:52)
[2024-02-29] VITALS (14 sets, daily range): BP systolic 150–184; BP diastolic 64–103; TEMP 97.8–99.1; O2SAT 92–99
[2024-02-29 04:32] LABS: HEMOGLOBIN 11.1 g/dl (13.5-17.5); MEAN CORPUSCULAR HEMOGLOBIN 30.4 pg (27.0-33.0); MEAN CORPUSCULAR HGB CONC 32.6 g/dl (32.0-36.5); MEAN CORPUSCULAR VOLUME 93.2 fl (80.0-96.0); PLATELET COUNT, AUTOMATED 263 10^3/uL (150-450); RED BLOOD COUNT 3.65 10^6/uL (4.30-6.10); WHITE BLOOD COUNT 19.1 10^3/uL (4.0-10.0)
[2024-02-29 04:41] LABS: LYMPHOCYTES 1 % (16-44); MONOCYTES 2 % (0-5); NEUTROPHILS 91 % (28-66); PLATELET ESTIMATE NORMAL (NORMAL)
[2024-02-29 04:42] LABS: ANISOCYTOSIS 1+; POLYCHROMASIA 1+
[2024-02-29 04:43] LABS: POIKILOCYTOSIS 1+
[2024-02-29 05:07] LABS: ALBUMIN 2.1 G/DL (3.2-5.2); ALKALINE PHOSPHATASE 50 U/L (40-129); ALT/SGPT 29 U/L (7.0-40); AST/SGOT 38 U/L (<34); BILIRUBIN,TOTAL 0.6 MG/DL (0.3-1.2); BLOOD UREA NITROGEN 20 MG/DL (9-23); CALCIUM LEVEL 9.2 MG/DL (8.3-10.6); CARBON DIOXIDE LEVEL 32 MMOL/L (20-31); CHLORIDE LEVEL 109 MMOL/L (98-107); CREATININE FOR GFR 0.74 MG/DL (0.70-1.30); GLOMERULAR FILTRATION RATE > 60.0 (>49); GLUCOSE, FASTING 161 MG/DL (74-106); MAGNESIUM LEVEL 1.7 MG/DL (1.8-2.4); PHOSPHORUS LEVEL 2.1 MG/DL (2.4-5.1); POTASSIUM SERUM 3.8 MMOL/L (3.5-5.1); SODIUM LEVEL 147 MMOL/L (136-145); TOTAL PROTEIN 5.7 G/DL (5.7-8.2)
[2024-02-29] MEDS: methylPREDNISolone 125MG 2ML VIAL IV SCH (09:14)
[2024-02-29] MEDS: MAG SULF 1GM/100ML (MAG RUN) 1 GM in IV 1 EA IV ONE (09:14)
[2024-02-29] MEDS: hydrALAZINE 20MG/ML 1ML VIAL IV PRN (11:15)
[2024-02-29] MEDS: POTASSIUM PHOSPHATE INJ 30 MMOL in D5W 500 ML IV ONE (11:16)
[2024-02-29] MEDS: VANCOMYCIN HCL 1,500 MG, VIAL MATE ADAPTER 1 EACH in NS 500 ML IV SCH (15:11)
[2024-02-29] MEDS: hydrALAZINE 20MG/ML 1ML VIAL IV ONE (16:51)
[2024-02-29] MEDS: ACETAMINOPHEN *IV* 1,000 MG in IV 1 EA IV ONE (22:10)
[2024-02-29 22:42] LABS: LEVETIRACETAM (KEPPRA) 19.3 mcg/mL (6.0-46.0)
[2024-03-01] VITALS (9 sets, daily range): BP systolic 154–170; BP diastolic 74–98; TEMP 97.3–98.7; O2SAT 90–94
[2024-03-01 06:27] LABS: BASO % 0.2 % (0.0-1.0); HEMATOCRIT 35.1 % (42.0-52.0); HEMOGLOBIN 11.3 g/dl (13.5-17.5); LYMPH # 0.6 10^3/uL (1.5-5.0); LYMPH % 2.5 % (24.0-44.0); MEAN CORPUSCULAR HGB CONC 32.2 g/dl (32.0-36.5); MEAN CORPUSCULAR VOLUME 93.1 fl (80.0-96.0); MONO # 0.7 10^3/uL (0.0-0.8); MONO % 2.8 % (2.0-8.0); NEUTROPHILS # 22.6 10^3/uL (1.5-8.5); NEUTROPHILS % 93.8 % (36.0-66.0); PLATELET COUNT, AUTOMATED 267 10^3/uL (150-450); RED BLOOD COUNT 3.77 10^6/uL (4.30-6.10); WHITE BLOOD COUNT 24.1 10^3/uL (4.0-10.0)
[2024-03-01 06:44] LABS: BLOOD UREA NITROGEN 23 MG/DL (9-23); CALCIUM LEVEL 8.8 MG/DL (8.3-10.6); CARBON DIOXIDE LEVEL 26 MMOL/L (20-31); CHLORIDE LEVEL 108 MMOL/L (98-107); CREATININE FOR GFR 0.68 MG/DL (0.70-1.30); GLOMERULAR FILTRATION RATE > 60.0 (>49); GLUCOSE, FASTING 263 MG/DL (74-106); MAGNESIUM LEVEL 1.7 MG/DL (1.8-2.4); POTASSIUM SERUM 3.6 MMOL/L (3.5-5.1); SODIUM LEVEL 145 MMOL/L (136-145)
[2024-03-01] MEDS: ACETAMINOPHEN 650MG SUPP PR PRN (09:45)
[2024-03-01] MEDS: MAG SULF 1GM/100ML (MAG RUN) 1 GM in IV 1 EA IV SCH (10:03)
[2024-03-01] MEDS: methylPREDNISolone 125MG 2ML VIAL IV SCH (10:09)
[2024-03-01 11:04] LABS: C REACTIVE PROTEIN QUANTITATIV 10.57 MG/DL (<1.0)
[2024-03-01 11:09] LABS: KETONE, URINE AUTO RFX TRACE mg/dL (NEGATIVE); LEUKOCYTE ESTERASE UR AUTO RFX NEGATIVE (NEGATIVE); MUCUS, URINE RFX SMALL (NEGATIVE); NITRITE, URINE AUTO RFX NEGATIVE (NEGATIVE); RBC, URINE AUTO RFX 70 /HPF (0-3); SQUAM EPITHELIAL CELL UR AURFX 0 /HPF (0-6)
[2024-03-01 11:11] LABS: PROCALCITONIN 7.16 ng/ml
[2024-03-01] MEDS: INSULIN LISPRO (NovoLOG) PER UNIT SC SCH ×2 (11:45→20:33)
[2024-03-01] MEDS ORDERED: VANCOMYCIN 1,250 MG/250 ML IV BAG IV SCH (18:00)
[2024-03-01] MEDS: ATORVASTATIN 20 MG TAB PO SCH (20:33)
[2024-03-01] MEDS: GABAPENTIN 300 MG CAP PO SCH (20:33)
[2024-03-01 22:48] LABS: BASO % 0.2 % (0.0-1.0); HEMATOCRIT 36.1 % (42.0-52.0); HEMOGLOBIN 11.9 g/dl (13.5-17.5); LYMPH # 0.6 10^3/uL (1.5-5.0); LYMPH % 3.6 % (24.0-44.0); MEAN CORPUSCULAR HEMOGLOBIN 30.1 pg (27.0-33.0); MEAN CORPUSCULAR VOLUME 91.2 fl (80.0-96.0); MONO # 0.7 10^3/uL (0.0-0.8); MONO % 4.4 % (2.0-8.0); NEUTROPHILS # 15.4 10^3/uL (1.5-8.5); NEUTROPHILS % 90.4 % (36.0-66.0); PLATELET COUNT, AUTOMATED 268 10^3/uL (150-450); RED BLOOD COUNT 3.96 10^6/uL (4.30-6.10)
[2024-03-01 23:05] LABS: ALKALINE PHOSPHATASE 63 U/L (40-129); ALT/SGPT 33 U/L (7.0-40); AST/SGOT 26 U/L (<34); BILIRUBIN,TOTAL 0.6 MG/DL (0.3-1.2); BLOOD UREA NITROGEN 24 MG/DL (9-23); CALCIUM LEVEL 8.9 MG/DL (8.3-10.6); CARBON DIOXIDE LEVEL 27 MMOL/L (20-31); CHLORIDE LEVEL 107 MMOL/L (98-107); CREATININE FOR GFR 0.68 MG/DL (0.70-1.30); GLOMERULAR FILTRATION RATE > 60.0 (>49); GLUCOSE, FASTING 325 MG/DL (74-106); MAGNESIUM LEVEL 1.7 MG/DL (1.8-2.4); POTASSIUM SERUM 3.6 MMOL/L (3.5-5.1); SODIUM LEVEL 142 MMOL/L (136-145); TOTAL PROTEIN 5.5 G/DL (5.7-8.2)
[2024-03-01 23:06] LABS: C REACTIVE PROTEIN QUANTITATIV 5.63 MG/DL (<1.0)
[2024-03-01 23:12] LABS: PROCALCITONIN 4.73 ng/ml
[2024-03-02 03:43] VITALS: BP 164/93; TEMP 98; O2SAT 92
[2024-03-02 05:27] LABS: HEMOGLOBIN 11.8 g/dl (13.5-17.5); MEAN CORPUSCULAR HEMOGLOBIN 29.8 pg (27.0-33.0); MEAN CORPUSCULAR HGB CONC 32.8 g/dl (32.0-36.5); MEAN CORPUSCULAR VOLUME 90.9 fl (80.0-96.0); PLATELET COUNT, AUTOMATED 259 10^3/uL (150-450); RED BLOOD COUNT 3.96 10^6/uL (4.30-6.10); WHITE BLOOD COUNT 17.7 10^3/uL (4.0-10.0)
[2024-03-02 05:51] LABS: C REACTIVE PROTEIN QUANTITATIV 4.47 MG/DL (<1.0)
[2024-03-02 05:52] LABS: BLOOD UREA NITROGEN 21 MG/DL (9-23); CALCIUM LEVEL 8.7 MG/DL (8.3-10.6); CARBON DIOXIDE LEVEL 27 MMOL/L (20-31); CHLORIDE LEVEL 108 MMOL/L (98-107); CREATININE FOR GFR 0.61 MG/DL (0.70-1.30); GLOMERULAR FILTRATION RATE > 60.0 (>49); GLUCOSE, FASTING 238 MG/DL (74-106); MAGNESIUM LEVEL 1.6 MG/DL (1.8-2.4); PHOSPHORUS LEVEL 1.4 MG/DL (2.4-5.1); POTASSIUM SERUM 3.2 MMOL/L (3.5-5.1); PREALBUMIN 8.2 MG/DL (10.0-40.0); SODIUM LEVEL 142 MMOL/L (136-145)
[2024-03-02 06:09] VITALS: BP 160/90
[2024-03-02 06:31] LABS: ATYPICAL LYMPH 1 % (0-5); LYMPHOCYTES 6 % (16-44); METAMYELOCYTES 1 % (0-0); MONOCYTES 5 % (0-5); MYELOCYTES 1 % (0-0); NEUTROPHILS 86 % (28-66)
[2024-03-02 06:32] LABS: PLATELET ESTIMATE NORMAL (NORMAL)
[2024-03-02 07:27] LABS: TOPIRAMATE LEVEL 4.6 mcg/mL (see note)
[2024-03-02] MEDS: TOPIRAMATE (TopAMAX) 25 MG TAB PO SCH (09:00)
[2024-03-02] MEDS: levETIRAcetam 250MG TABLET (KEPPRA) PO SCH (09:00)
[2024-03-02] MEDS: MAGNESIUM OXIDE 400MG TAB (MAG-OX) PO SCH (09:00)
[2024-03-02] MEDS ORDERED: MAGNESIUM OXIDE 400MG TAB (MAG-OX) PO SCH (09:00)
[2024-03-02] MEDS ORDERED: MIDODRINE 5 MG TAB PO SCH (09:00)
[2024-03-02] MEDS: MECLIZINE 25 MG TABLET PO PRN (09:00)
[2024-03-02] MEDS: LEVEMIR (INSULIN DETEMIR) 1 UNITS/0.01ML SC SCH (09:01)
[2024-03-02] MEDS: POTASSIUM CHLORIDE 10MEQ SR TABLET PO SCH (09:01)
[2024-03-02] MEDS: POTASSIUM PHOSPHATE INJ 30 MMOL in D5W 500 ML IV ONE (09:24)
[2024-03-02] MEDS: LevoFLOXacin 750 MG TABLET PO SCH (09:48)
[2024-03-02] MEDS: NEUTRA-PHOS 1.5 GM PACKET PO SCH (09:48)
[2024-03-02 10:16] LABS: PROCALCITONIN 3.76 ng/ml
[2024-03-02] MEDS ORDERED: INSULIN LISPRO (NovoLOG) PER UNIT SC SCH (12:00)
[2024-03-02 12:10] VITALS: BP 160/99; TEMP 98.1; O2SAT 93
[2024-03-02] MEDS ORDERED: DOXYCYCLINE HYCLATE 100 MG in DEXTROSE 5% (D5W) MINI-BAG PLU 100 ML IV SCH (12:20)
[2024-03-02] MEDS ORDERED: cefTRIAXone SOD 2 GM in DEXTROSE 5% (D5W) ADV/MINI-BAG 50 ML IV SCH (12:20)
[2024-03-02 15:40] VITALS: BP 150/89; TEMP 97.9; O2SAT 93
[2024-03-02 19:23] VITALS: BP 139/78; TEMP 97.7; O2SAT 95
[2024-03-02] MEDS: RAMELTEON 8 MG TAB (ROZEREM) PO PRN (23:21)
[2024-03-03 07:25] VITALS: BP 158/86; TEMP 96.3; O2SAT 94
[2024-03-03] MEDS: MAALOX 30 ML SUSP *UDC PO ONE (08:03)
[2024-03-03] MEDS: INSULIN LISPRO (NovoLOG) PER UNIT SC SCH (08:03)
[2024-03-03 08:32] VITALS: BP 124/64
[2024-03-03] MEDS: LIDOCAINE 5% (LIDODERM) PATCH TD ONE (08:34)
[2024-03-03] MEDS: PANTOPRAZOLE 40MG TAB (PROTONIX) PO SCH (08:35)
[2024-03-03] MEDS: FLUDROCORTISONE ACETATE 0.1 MG TAB PO SCH (08:36)
[2024-03-03] MEDS: VITAMIN D 1,000 INTERNATIONAL UNITS TABLET PO SCH (09:44)
[2024-03-03] MEDS: ENOXAPARIN 40MG/0.4ML SYRINGE (J1650 PER 10MG) SC SCH (09:44)
[2024-03-03] MEDS: FERROUS SULFATE 325MG TAB PO SCH (09:45)
[2024-03-03 10:11] LABS: POTASSIUM SERUM 3.5 MMOL/L (3.5-5.1)
[2024-03-03 13:04] LABS: MAGNESIUM LEVEL 1.6 MG/DL (1.8-2.4); PHOSPHORUS LEVEL 3.3 MG/DL (2.4-5.1)
[2024-03-03 15:04] VITALS: BP 149/84; TEMP 97.3; O2SAT 93
[2024-03-03] MEDS: BENZONATATE 100MG CAPSULE PO SCH (21:49)
[2024-03-03] MEDS: LEVALBUTEROL 1.25MG 0.5ML CONCENTRATE NEB INH SCH (21:59)
[2024-03-04] VITALS (10 sets, daily range): BP systolic 78–118; BP diastolic 38–59; TEMP 97.2–97.5; O2SAT 85–95
[2024-03-04] MEDS ORDERED: LEVALBUTEROL 1.25MG 0.5ML CONCENTRATE NEB INH SCH
[2024-03-04] MEDS: MAG SULF 1GM/100ML (MAG RUN) 1 GM in IV 1 EA IV SCH
[2024-03-04] MEDS: LIDOCAINE 5% (LIDODERM) PATCH TD SCH (06:18)
[2024-03-04] MEDS: NORCO, ANEXSIA 5/325MG TABLET (HYDROcodone/ACETAMINOPHEN) PO ONE (06:19)
[2024-03-04 09:48] LABS: HEMATOCRIT 36.6 % (42.0-52.0); HEMOGLOBIN 11.7 g/dl (13.5-17.5); MEAN CORPUSCULAR HEMOGLOBIN 30.2 pg (27.0-33.0); MEAN CORPUSCULAR VOLUME 94.6 fl (80.0-96.0); PLATELET COUNT, AUTOMATED 237 10^3/uL (150-450); RED BLOOD COUNT 3.87 10^6/uL (4.30-6.10); WHITE BLOOD COUNT 11.6 10^3/uL (4.0-10.0)
[2024-03-04] MEDS: LR 1,000 ML IV ONE ×2 (09:53→12:09)
[2024-03-04 10:53] LABS: CORTISOL AM 12.2 UG/DL (4.3-22.4)
[2024-03-04] MEDS: HYDROCORTISONE 100MG/2ML VIAL IV ONE (10:53)
[2024-03-04 10:55] LABS: ALBUMIN 1.9 G/DL (3.2-5.2); ALKALINE PHOSPHATASE 58 U/L (40-129); ALT/SGPT 78 U/L (7.0-40); AST/SGOT 38 U/L (<34); BILIRUBIN,TOTAL 0.7 MG/DL (0.3-1.2); BLOOD UREA NITROGEN 23 MG/DL (9-23); CALCIUM LEVEL 8.5 MG/DL (8.3-10.6); CARBON DIOXIDE LEVEL 30 MMOL/L (20-31); CHLORIDE LEVEL 105 MMOL/L (98-107); CREATININE FOR GFR 0.96 MG/DL (0.70-1.30); GLOMERULAR FILTRATION RATE > 60.0 (>49); GLUCOSE, FASTING 354 MG/DL (74-106); POTASSIUM SERUM 3.6 MMOL/L (3.5-5.1); SODIUM LEVEL 141 MMOL/L (136-145); TOTAL PROTEIN 4.8 G/DL (5.7-8.2)
[2024-03-04] MEDS: MIDODRINE 5 MG TAB PO SCH (12:09)
[2024-03-04] MEDS: KETOROLAC 30 MG/ML 1ML VIAL IV ONE (12:28)
[2024-03-04 13:35] LABS: C REACTIVE PROTEIN QUANTITATIV 10.52 MG/DL (<1.0)
[2024-03-04 13:47] LABS: PROCALCITONIN 0.87 ng/ml
[2024-03-04] MEDS: oxyCODONE 5MG TAB PO ONE (16:03)
[2024-03-05 04:00] VITALS: BP 103/59; TEMP 97.9; O2SAT 96
[2024-03-05] MEDS: LEVEMIR (INSULIN DETEMIR) 1 UNITS/0.01ML SC SCH (08:03)
[2024-03-05 08:46] LABS: BASO % 0.1 % (0.0-1.0); EOS # 0.2 10^3/uL (0.0-0.5); EOS % 1.8 % (0.0-3.0); HEMATOCRIT 35.6 % (42.0-52.0); LYMPH # 1.5 10^3/uL (1.5-5.0); LYMPH % 11.1 % (24.0-44.0); MEAN CORPUSCULAR HEMOGLOBIN 29.6 pg (27.0-33.0); MEAN CORPUSCULAR HGB CONC 30.9 g/dl (32.0-36.5); MONO # 0.7 10^3/uL (0.0-0.8); MONO % 4.8 % (2.0-8.0); NEUTROPHILS % 80.7 % (36.0-66.0); PLATELET COUNT, AUTOMATED 260 10^3/uL (150-450); RED BLOOD COUNT 3.71 10^6/uL (4.30-6.10); WHITE BLOOD COUNT 13.6 10^3/uL (4.0-10.0)
[2024-03-05 09:06] LABS: ALBUMIN 1.9 G/DL (3.2-5.2); ALKALINE PHOSPHATASE 58 U/L (40-129); ALT/SGPT 66 U/L (7.0-40); AST/SGOT 38 U/L (<34); BILIRUBIN,TOTAL 0.6 MG/DL (0.3-1.2); BLOOD UREA NITROGEN 18 MG/DL (9-23); CALCIUM LEVEL 8.8 MG/DL (8.3-10.6); CARBON DIOXIDE LEVEL 32 MMOL/L (20-31); CHLORIDE LEVEL 104 MMOL/L (98-107); CREATININE FOR GFR 0.76 MG/DL (0.70-1.30); GLOMERULAR FILTRATION RATE > 60.0 (>49); GLUCOSE, FASTING 352 MG/DL (74-106); MAGNESIUM LEVEL 1.8 MG/DL (1.8-2.4); POTASSIUM SERUM 3.9 MMOL/L (3.5-5.1); SODIUM LEVEL 142 MMOL/L (136-145)
[2024-03-05 09:19] LABS: C REACTIVE PROTEIN QUANTITATIV 8.47 MG/DL (<1.0)
[2024-03-05 09:26] LABS: PROCALCITONIN 0.43 ng/ml
[2024-03-05 09:35] VITALS: BP 170/60; TEMP 96.6
[2024-03-05] MEDS: ACETAMINOPHEN 325 MG TAB PO PRN (10:28)
[2024-03-05 11:50] VITALS: BP 110/71; TEMP 97.5; O2SAT 94
[2024-03-05 12:29] VITALS: BP 110/60; TEMP 97.3
[2024-03-05 16:24] VITALS: BP 120/60; TEMP 97.2
[2024-03-05] MEDS: GLUCOSE 4 GM CHEW PO PRN (17:19)
[2024-03-05 20:02] VITALS: BP 123/73; TEMP 98.1; O2SAT 93
[2024-03-06 04:00] VITALS: BP 128/78; TEMP 97.5; O2SAT 94
[2024-03-06] MEDS: LEVEMIR (INSULIN DETEMIR) 1 UNITS/0.01ML SC SCH (09:41)
[2024-03-06 12:00] VITALS: BP 122/65; TEMP 97.7; O2SAT 91
[2024-03-06 12:55] VITALS: BP 110/60; TEMP 97.3
[2024-03-06] MEDS: INSULIN LISPRO (NovoLOG) PER UNIT SC SCH (14:08)
[2024-03-06] MEDS: DEXTROSE 50% 50ML SYRINGE IV PRN (17:53)
[2024-03-06 20:04] VITALS: BP 151/69; TEMP 97.7; O2SAT 92
[2024-03-07] VITALS (10 sets, daily range): BP systolic 70–147; BP diastolic 50–69; TEMP 97.2–98.6; O2SAT 82–94
[2024-03-07] MEDS: LEVEMIR (INSULIN DETEMIR) 1 UNITS/0.01ML SC SCH (09:28)
[2024-03-07] MEDS ORDERED: guaiFENesin/CODEINE SYRUP 5 ML UDC PO PRN (13:05)
[2024-03-07 13:36] LABS: HEMATOCRIT 33.5 % (42.0-52.0); HEMOGLOBIN 10.7 g/dl (13.5-17.5); MEAN CORPUSCULAR HEMOGLOBIN 30.7 pg (27.0-33.0); MEAN CORPUSCULAR HGB CONC 31.9 g/dl (32.0-36.5); PLATELET COUNT, AUTOMATED 322 10^3/uL (150-450); RED BLOOD COUNT 3.49 10^6/uL (4.30-6.10); WHITE BLOOD COUNT 16.4 10^3/uL (4.0-10.0)
[2024-03-07 14:25] LABS: VENOUS BASE EXCESS 1.4 (-2.0-2.0); VENOUS HCO3 27.1 MMOL/L (23.0-27.0); VENOUS O2 SATURATION 94.5 % (60.0-80.0); VENOUS PARTIAL PRESSURE CO2 47.8 mmHg (38.0-50.0); VENOUS PARTIAL PRESSURE O2 71.4 mmHg (30.0-50.0); VENOUS PH 7.372 UNITS (7.330-7.430); VENOUS STANDARD HCO3 25.7 MMOL/L; VENOUS TOTAL CO2 28.6 MMOL/L (24.0-28.0)
[2024-03-07 15:01] LABS: BLOOD UREA NITROGEN 16 MG/DL (9-23); C REACTIVE PROTEIN QUANTITATIV 13.37 MG/DL (<1.0); CALCIUM LEVEL 8.7 MG/DL (8.3-10.6); CARBON DIOXIDE LEVEL 30 MMOL/L (20-31); CHLORIDE LEVEL 104 MMOL/L (98-107); CREATININE FOR GFR 0.76 MG/DL (0.70-1.30); GLOMERULAR FILTRATION RATE > 60.0 (>49); GLUCOSE, FASTING 312 MG/DL (74-106); POTASSIUM SERUM 4.4 MMOL/L (3.5-5.1); SODIUM LEVEL 140 MMOL/L (136-145)
[2024-03-07 15:03] LABS: THYROID STIMULATING HORMONE 2.038 uIU/ML (0.55-4.78)
[2024-03-07 15:04] LABS: FREE T4 1.01 NG/DL (0.89-1.76)
[2024-03-07 15:07] LABS: PROCALCITONIN 0.27 ng/ml
[2024-03-07] MEDS: LR 1,000 ML IV ONE (15:18)
[2024-03-07] MEDS: MIDODRINE 5 MG TAB PO SCH (16:00)
[2024-03-07 16:41] LABS: KETONE, URINE AUTO RFX NEGATIVE (NEGATIVE); MUCUS, URINE RFX SMALL (NEGATIVE); NITRITE, URINE AUTO RFX NEGATIVE (NEGATIVE); RBC, URINE AUTO RFX 0 /HPF (0-3); SQUAM EPITHELIAL CELL UR AURFX 0 /HPF (0-6)
[2024-03-07 16:42] LABS: LEUKOCYTE ESTERASE UR AUTO RFX 1+ (NEGATIVE)
[2024-03-07] MEDS: MIDODRINE 5 MG TAB PO ONE (17:27)
[2024-03-08 03:36] VITALS: BP 137/68; TEMP 98.1; O2SAT 92
[2024-03-08] MEDS ORDERED: MIDODRINE 5 MG TAB PO SCH (08:00)
[2024-03-08] MEDS: MIDODRINE 5 MG TAB PO SCH (09:40)
[2024-03-08 12:00] VITALS: BP 137/76; TEMP 97.7; O2SAT 94
[2024-03-08 15:06] LABS: HEMATOCRIT 31.4 % (42.0-52.0); HEMOGLOBIN 9.8 g/dl (13.5-17.5); MEAN CORPUSCULAR HEMOGLOBIN 30.2 pg (27.0-33.0); MEAN CORPUSCULAR HGB CONC 31.2 g/dl (32.0-36.5); MEAN CORPUSCULAR VOLUME 96.9 fl (80.0-96.0); PLATELET COUNT, AUTOMATED 328 10^3/uL (150-450); RED BLOOD COUNT 3.24 10^6/uL (4.30-6.10); WHITE BLOOD COUNT 14.1 10^3/uL (4.0-10.0)
[2024-03-08 15:35] LABS: BLOOD UREA NITROGEN 14 MG/DL (9-23); CALCIUM LEVEL 8.6 MG/DL (8.3-10.6); CARBON DIOXIDE LEVEL 34 MMOL/L (20-31); CHLORIDE LEVEL 104 MMOL/L (98-107); CREATININE FOR GFR 0.73 MG/DL (0.70-1.30); GLOMERULAR FILTRATION RATE > 60.0 (>49); GLUCOSE, FASTING 283 MG/DL (74-106); POTASSIUM SERUM 4.5 MMOL/L (3.5-5.1); SODIUM LEVEL 142 MMOL/L (136-145)
[2024-03-08 19:50] VITALS: BP 103/61; TEMP 97.9; O2SAT 93
[2024-03-08 21:05] VITALS: O2SAT 93
[2024-03-09] VITALS (16 sets, daily range): BP systolic 92–135; BP diastolic 46–69; TEMP 97.5–99.9; O2SAT 85–97
[2024-03-09] MEDS: guaiFENesin ER TABLET 600 MG TAB PO SCH (20:42)
[2024-03-10] VITALS (28 sets, daily range): BP systolic 118–153; BP diastolic 60–76; TEMP 97.4–99.7; O2SAT 84–98
[2024-03-10 06:22] LABS: BASO % 0.2 % (0.0-1.0); EOS # 0.2 10^3/uL (0.0-0.5); EOS % 1.3 % (0.0-3.0); HEMATOCRIT 30.3 % (42.0-52.0); HEMOGLOBIN 9.6 g/dl (13.5-17.5); LYMPH # 0.9 10^3/uL (1.5-5.0); MEAN CORPUSCULAR HEMOGLOBIN 30.6 pg (27.0-33.0); MEAN CORPUSCULAR HGB CONC 31.7 g/dl (32.0-36.5); MEAN CORPUSCULAR VOLUME 96.5 fl (80.0-96.0); MONO % 7.8 % (2.0-8.0); NEUTROPHILS # 10.3 10^3/uL (1.5-8.5); NEUTROPHILS % 83.5 % (36.0-66.0); PLATELET COUNT, AUTOMATED 347 10^3/uL (150-450); RED BLOOD COUNT 3.14 10^6/uL (4.30-6.10); WHITE BLOOD COUNT 12.3 10^3/uL (4.0-10.0)
[2024-03-10 06:41] LABS: BLOOD UREA NITROGEN 10 MG/DL (9-23); C REACTIVE PROTEIN QUANTITATIV 8.37 MG/DL (<1.0); CALCIUM LEVEL 8.4 MG/DL (8.3-10.6); CARBON DIOXIDE LEVEL 35 MMOL/L (20-31); CHLORIDE LEVEL 104 MMOL/L (98-107); CREATININE FOR GFR 0.67 MG/DL (0.70-1.30); GLOMERULAR FILTRATION RATE > 60.0 (>49); GLUCOSE, FASTING 115 MG/DL (74-106); MAGNESIUM LEVEL 1.6 MG/DL (1.8-2.4); POTASSIUM SERUM 3.7 MMOL/L (3.5-5.1); SODIUM LEVEL 143 MMOL/L (136-145)
[2024-03-10 08:23] LABS: ABG BASE EXCESS 7.5 (-2.0-2.0); ABG HCO3 34.6 MMOL/L (22.0-26.0); ABG O2 SATURATION 95.8 % (95.0-99.0); ABG PARTIAL PRESSURE O2 83.6 mmHg (75.0-100.0); ABG STANDARD HCO3 31.3 MMOL/L. (22.0-26.0); ABG TOTAL CO2 36.5 MMOL/L (23.0-31.0)
[2024-03-10 08:25] LABS: ABG PARTIAL PRESSURE CO2 62.6 mmHg (35.0-45.0)
[2024-03-10] MEDS: MAG SULF 1GM/100ML (MAG RUN) 1 GM in IV 1 EA IV SCH (08:47)
[2024-03-10] MEDS: LEVEMIR (INSULIN DETEMIR) 1 UNITS/0.01ML SC SCH (08:47)
[2024-03-10] MEDS ORDERED: LEVEMIR (INSULIN DETEMIR) 1 UNITS/0.01ML SC SCH (09:00)
[2024-03-10] MEDS: PIPERACILLIN/TAZOBACTAM SOD 4.5 GM in DEXTROSE 5% (D5W) ADV/MINI-BAG 50 ML IV SCH (17:44)
[2024-03-10 17:59] LABS: ABG BASE EXCESS 8.9 (-2.0-2.0); ABG HCO3 34.7 MMOL/L (22.0-26.0); ABG O2 SATURATION 96.9 % (95.0-99.0); ABG PARTIAL PRESSURE CO2 54.8 mmHg (35.0-45.0); ABG PARTIAL PRESSURE O2 90.8 mmHg (75.0-100.0); ABG STANDARD HCO3 32.7 MMOL/L. (22.0-26.0); ABG TOTAL CO2 36.4 MMOL/L (23.0-31.0)
[2024-03-10] MEDS: KETOROLAC 30 MG/ML 1ML VIAL IV ONE (21:03)
[2024-03-10] MEDS: D5W/0.9% SODIUM CHLORIDE 1,000 ML IV SCH (21:42)
[2024-03-11] VITALS (28 sets, daily range): BP systolic 117–165; BP diastolic 66–79; TEMP 97.2–98.6; O2SAT 89–100
[2024-03-11 07:19] LABS: BASO % 0.3 % (0.0-1.0); EOS # 0.2 10^3/uL (0.0-0.5); EOS % 1.4 % (0.0-3.0); HEMATOCRIT 29.8 % (42.0-52.0); HEMOGLOBIN 9.3 g/dl (13.5-17.5); LYMPH # 0.6 10^3/uL (1.5-5.0); LYMPH % 5.4 % (24.0-44.0); MEAN CORPUSCULAR HEMOGLOBIN 30.2 pg (27.0-33.0); MEAN CORPUSCULAR HGB CONC 31.2 g/dl (32.0-36.5); MEAN CORPUSCULAR VOLUME 96.8 fl (80.0-96.0); MONO # 0.8 10^3/uL (0.0-0.8); MONO % 7.8 % (2.0-8.0); NEUTROPHILS # 9.1 10^3/uL (1.5-8.5); NEUTROPHILS % 84.8 % (36.0-66.0); PLATELET COUNT, AUTOMATED 355 10^3/uL (150-450); RED BLOOD COUNT 3.08 10^6/uL (4.30-6.10); WHITE BLOOD COUNT 10.7 10^3/uL (4.0-10.0)
[2024-03-11 07:35] LABS: BLOOD UREA NITROGEN 12 MG/DL (9-23); CALCIUM LEVEL 8.6 MG/DL (8.3-10.6); CARBON DIOXIDE LEVEL 36 MMOL/L (20-31); CHLORIDE LEVEL 102 MMOL/L (98-107); CREATININE FOR GFR 0.76 MG/DL (0.70-1.30); GLOMERULAR FILTRATION RATE > 60.0 (>49); GLUCOSE, FASTING 135 MG/DL (74-106); MAGNESIUM LEVEL 1.8 MG/DL (1.8-2.4); POTASSIUM SERUM 3.8 MMOL/L (3.5-5.1); SODIUM LEVEL 144 MMOL/L (136-145)
[2024-03-11 10:41] LABS: PROCALCITONIN 0.19 ng/ml
[2024-03-12] VITALS (7 sets, daily range): BP systolic 133–160; BP diastolic 70–84; TEMP 97.7–98.7; O2SAT 90–95
[2024-03-12] MEDS: ALBUTEROL 90 MCG/ACT 8GM HFA INHALER INH PRN (05:01)
[2024-03-12 05:52] LABS: BASO % 0.3 % (0.0-1.0); EOS # 0.1 10^3/uL (0.0-0.5); EOS % 1.1 % (0.0-3.0); HEMATOCRIT 30.8 % (42.0-52.0); HEMOGLOBIN 9.7 g/dl (13.5-17.5); LYMPH # 0.5 10^3/uL (1.5-5.0); LYMPH % 4.9 % (24.0-44.0); MEAN CORPUSCULAR HEMOGLOBIN 29.6 pg (27.0-33.0); MEAN CORPUSCULAR HGB CONC 31.5 g/dl (32.0-36.5); MEAN CORPUSCULAR VOLUME 93.9 fl (80.0-96.0); MONO # 0.7 10^3/uL (0.0-0.8); NEUTROPHILS # 8.8 10^3/uL (1.5-8.5); NEUTROPHILS % 86.4 % (36.0-66.0); PLATELET COUNT, AUTOMATED 385 10^3/uL (150-450); RED BLOOD COUNT 3.28 10^6/uL (4.30-6.10); WHITE BLOOD COUNT 10.1 10^3/uL (4.0-10.0)
[2024-03-12 06:02] LABS: BLOOD UREA NITROGEN 10 MG/DL (9-23); CALCIUM LEVEL 8.8 MG/DL (8.3-10.6); CARBON DIOXIDE LEVEL 33 MMOL/L (20-31); CHLORIDE LEVEL 100 MMOL/L (98-107); CREATININE FOR GFR 0.73 MG/DL (0.70-1.30); GLOMERULAR FILTRATION RATE > 60.0 (>49); GLUCOSE, FASTING 198 MG/DL (74-106); POTASSIUM SERUM 3.8 MMOL/L (3.5-5.1); SODIUM LEVEL 142 MMOL/L (136-145)
[2024-03-12] MEDS: LEVEMIR (INSULIN DETEMIR) 1 UNITS/0.01ML SC SCH (10:49)
[2024-03-12] MEDS: D5W/0.9% SODIUM CHLORIDE 1,000 ML IV SCH (23:48)
[2024-03-13] VITALS (7 sets, daily range): BP systolic 119–166; BP diastolic 58–85; TEMP 97.9–98.5; O2SAT 93–96
[2024-03-13 06:58] LABS: BASO % 0.4 % (0.0-1.0); EOS # 0.2 10^3/uL (0.0-0.5); EOS % 2.1 % (0.0-3.0); HEMATOCRIT 30.4 % (42.0-52.0); HEMOGLOBIN 9.7 g/dl (13.5-17.5); LYMPH # 0.6 10^3/uL (1.5-5.0); LYMPH % 6.6 % (24.0-44.0); MEAN CORPUSCULAR HEMOGLOBIN 29.8 pg (27.0-33.0); MEAN CORPUSCULAR HGB CONC 31.9 g/dl (32.0-36.5); MEAN CORPUSCULAR VOLUME 93.5 fl (80.0-96.0); MONO # 0.6 10^3/uL (0.0-0.8); MONO % 6.6 % (2.0-8.0); NEUTROPHILS # 7.5 10^3/uL (1.5-8.5); NEUTROPHILS % 83.9 % (36.0-66.0); PLATELET COUNT, AUTOMATED 384 10^3/uL (150-450); RED BLOOD COUNT 3.25 10^6/uL (4.30-6.10); WHITE BLOOD COUNT 8.9 10^3/uL (4.0-10.0)
[2024-03-13 07:17] LABS: BLOOD UREA NITROGEN 7 MG/DL (9-23); CALCIUM LEVEL 8.6 MG/DL (8.3-10.6); CARBON DIOXIDE LEVEL 34 MMOL/L (20-31); CHLORIDE LEVEL 103 MMOL/L (98-107); CREATININE FOR GFR 0.71 MG/DL (0.70-1.30); GLOMERULAR FILTRATION RATE > 60.0 (>49); GLUCOSE, FASTING 250 MG/DL (74-106); POTASSIUM SERUM 3.6 MMOL/L (3.5-5.1); SODIUM LEVEL 143 MMOL/L (136-145)
[2024-03-13] MEDS: INSULIN LISPRO (NovoLOG) PER UNIT SC SCH ×2 (08:13→21:30)
[2024-03-13] MEDS ORDERED: PIPERACILLIN/TAZOBACTAM SOD 3.375 GM in DEXTROSE 5% (D5W) ADV/MINI-BAG 50 ML IV SCH (11:00)
[2024-03-13] MEDS: PIPERACILLIN/TAZOBACTAM SOD 3.375 GM in DEXTROSE 5% (D5W) ADV/MINI-BAG 50 ML IV SCH (11:17)
[2024-03-13] MEDS: LEVEMIR (INSULIN DETEMIR) 1 UNITS/0.01ML SC SCH (21:31)
[2024-03-14] VITALS (7 sets, daily range): BP systolic 115–178; BP diastolic 63–88; TEMP 97.7–98.3; O2SAT 90–95
[2024-03-14 07:04] LABS: BASO % 0.4 % (0.0-1.0); EOS # 0.2 10^3/uL (0.0-0.5); EOS % 2.9 % (0.0-3.0); HEMATOCRIT 30.1 % (42.0-52.0); HEMOGLOBIN 9.7 g/dl (13.5-17.5); LYMPH # 0.7 10^3/uL (1.5-5.0); LYMPH % 9.3 % (24.0-44.0); MEAN CORPUSCULAR HEMOGLOBIN 29.9 pg (27.0-33.0); MEAN CORPUSCULAR HGB CONC 32.2 g/dl (32.0-36.5); MEAN CORPUSCULAR VOLUME 92.9 fl (80.0-96.0); MONO # 0.6 10^3/uL (0.0-0.8); MONO % 6.9 % (2.0-8.0); NEUTROPHILS # 6.4 10^3/uL (1.5-8.5); NEUTROPHILS % 80.1 % (36.0-66.0); PLATELET COUNT, AUTOMATED 368 10^3/uL (150-450); RED BLOOD COUNT 3.24 10^6/uL (4.30-6.10); WHITE BLOOD COUNT 7.9 10^3/uL (4.0-10.0)
[2024-03-14 07:30] LABS: BLOOD UREA NITROGEN 8 MG/DL (9-23); CARBON DIOXIDE LEVEL 34 MMOL/L (20-31); CHLORIDE LEVEL 104 MMOL/L (98-107); GLOMERULAR FILTRATION RATE > 60.0 (>49); GLUCOSE, FASTING 175 MG/DL (74-106); POTASSIUM SERUM 3.5 MMOL/L (3.5-5.1); SODIUM LEVEL 143 MMOL/L (136-145)
[2024-03-14] MEDS: ONDANSETRON 4MG 2ML VIAL IV PRN (12:56)
[2024-03-14] MEDS: MIDODRINE 5 MG TAB PO SCH (16:00)
[2024-03-15 00:41] VITALS: BP 128/69; TEMP 99.2; O2SAT 95
[2024-03-15 03:53] VITALS: BP 112/60; TEMP 98.9; O2SAT 91
[2024-03-15 08:31] VITALS: BP 121/59; O2SAT 96
[2024-03-15 12:38] VITALS: BP 131/73; TEMP 98; O2SAT 92
[2024-03-15] MEDS ORDERED: LANTINJ4 SC (15:44)
[2024-03-15] MEDS ORDERED: MIDO5TA PO (15:44)
[2024-03-15] MEDS ORDERED: NOVOINJ3 SC (15:44)
[2024-03-15 16:46] VITALS: BP 119/68; O2SAT 95
== END 2024-03-15 17:23 | disposition home health service (06) | DRG 871 ==
LOC: M ED 13:02 → EDBD 13:02 → M ED INP 16:44 → M ICU 17:29 → M PCU 02-29 17:38 → M MSPAV 03-03 14:59 → M PCU 03-10 11:25
PROVIDERS: ADMIT Internal Medicine Pulmonary Disease; ATTEND Internal Medicine
PROC: 06HM33Z Insertion of Infusion Device into Right Femoral Vein, Percutaneous Approach (ICD-10-PCS; principal; 2024-02-26)
PROC: 0BH17EZ Insertion of Endotracheal Airway into Trachea, Via Natural or Artificial Opening (ICD-10-PCS; 2024-02-26)
PROC: 5A1945Z Respiratory Ventilation, 24-96 Consecutive Hours (ICD-10-PCS; 2024-02-26)
DX: A41.9 Sepsis, unspecified organism (principal); J96.01 Acute respiratory failure with hypoxia; J15.9 Unspecified bacterial pneumonia; R65.21 Severe sepsis with septic shock; E11.641 Type 2 diabetes mellitus with hypoglycemia with coma; E27.40 Unspecified adrenocortical insufficiency; E87.1 Hypo-osmolality and hyponatremia; R47.01 Aphasia; G40.909 Epilepsy, unspecified, not intractable, without status epilepticus; E11.42 Type 2 diabetes mellitus with diabetic polyneuropathy; G47.33 Obstructive sleep apnea (adult) (pediatric); R29.6 Repeated falls; D50.9 Iron deficiency anemia, unspecified; R07.89 Other chest pain; B34.8 Other viral infections of unspecified site; I49.8 Other specified cardiac arrhythmias; E78.5 Hyperlipidemia, unspecified; E87.6 Hypokalemia; E83.42 Hypomagnesemia; F39 Unspecified mood [affective] disorder; G47.00 Insomnia, unspecified; R68.0 Hypothermia, not associated with low environmental temperature; I95.89 Other hypotension; Z79.4 Long term (current) use of insulin; Z79.899 Other long term (current) drug therapy; Z98.84 Bariatric surgery status; Z87.820 Personal history of traumatic brain injury